=== PATIENT | male | born 1955 | race African-American/Black ===

== ENCOUNTER 2017-02-01 12:22 | Inpatient (IN) | payer OTHER ==
[~2017-02-01] VITALS: Ht 182.9 cm; Wt 163.1 kg
[2017-02-01] MEDS ORDERED: ACETAMINOPHEN 500 MG TABLET PO ONE (12:45)
[2017-02-01] MEDS ORDERED: IV NORMAL SALINE 1000ML BAG 1,000 ML IV ONE (12:45)
--- NOTE | 2017-02-01 12:46 | EKG ---
[facility] [address] [place] [address] Test Date: 2017-02-01 Test Time: 12:35:31 Pat Name: DEUCE MACDONALD Department: Room: Gender: Validation Manager: : [id number] Requested By: SHERINE ROTH Order Number: [id number] Reading MD: Steve Nguyễn Measurements Intervals [place] Rate: 120 P: -37 CA: 134 QRS: -27 QRSD: 80 T: 44 QT: 280 QTc: 400 Interpretive Statements SINUS TACHYCARDIA ATRIAL PREMATURE COMPLEX(ES) LEFTWARD AXIS T ABNORMALITY IN ANTERIOR LEADS ABNORMAL ECG Electronically Signed On 02-15-2017 13:42:07 TELEPHONE SERVICE REPRESENTATIVE by Steve Nguyễn
--- NOTE | 2017-02-01 12:50 | PHYS DOC ---
Past Medical History Past Medical History: CHF, Diabetes-Type II, Hypertension Adult General Chief Complaint Chief Complaint: shortness of breath HPI HPI Patient is a 61 year old male who presents with shortness of breath. Patient has an incarcerated male who presents via EMS for increasing shortness of breath , fever and cough. His initial O2 sats were in the 70s at the [facility]. He was given breathing treatments and supplemental oxygen and continued to be hypoxic. He states he feels slightly better, no known medical history other than hypertension and diabetes. He believes he possibly has a history of CHF, does not like to lay flat today as he feels like his heart will stop. He denies any chest pain, no nausea or vomiting. No neck pain, no headache. Patient does not wear oxygen at baseline. Review of Systems Review of Systems Constitutional: Fever Eyes: Denies change in visual acuity, redness, or eye pain [] HENT: Denies nasal congestion or sore throat [] Respiratory: Cough Cardiovascular: No additional information not addressed in HPI [] GI: Denies abdominal pain, nausea, vomiting, bloody stools or diarrhea [] : Denies dysuria or hematuria [] Musculoskeletal: Denies back pain or joint pain [] Integument: Denies rash or skin lesions [] Neurologic: Denies headache, focal weakness or sensory changes [] Current Medications Current Medications Current Medications Medications (Trade) Dose Ordered Sig/[place] Start Time Stop Time Status Last Admin Dose Admin Acetaminophen (Tylenol) 1,000 mg 1X ONCE 02/01/17 12:45 02/01/17 13:19 DC 02/01/17 13:49 1,000 MG Albuterol Sulfate (Ventolin Neb Soln) 10 mg 1X ONCE 02/01/17 13:15 02/01/17 13:19 DC 02/01/17 14:20 10 MG Albuterol/ Ipratropium (Duoneb) 3 ml 1X ONCE 02/01/17 13:15 02/01/17 13:20 DC 02/01/17 14:30 3 ML Levofloxacin/ Dextrose (Levaquin Per Pharmacy) 1 each PRN DAILY PRN 02/01/17 13:00 Piperacillin Sod/ Tazobactam Sod (Zosyn Per Pharmacy) 1 each PRN DAILY PRN 02/01/17 13:00 Sodium Chloride 1,000 ml @ 200 mls/hr 1X ONCE 02/01/17 12:45 02/01/17 17:44 DC 02/01/17 13:49 200 MLS/HR Vancomycin HCl (Vanco Per Pharmacy) 1 each PRN DAILY PRN 02/01/17 13:00 02/02/17 07:10 1 EACH Physical Exam Physical Exam Constitutional: Well developed, well nourished, moderate respiratory distress, obese HENT: Normocephalic, atraumatic, bilateral external ears normal, oropharynx moist, no oral exudates, nose normal. [] Eyes: PERRLA, EOMI, conjunctiva normal, no discharge. [] Neck: Normal range of motion, no tenderness, supple, no stridor. [] Cardiovascular:Heart rate tach [place] with regular rhythm, no murmur [] Lungs & Thorax: Tachypnic, Diffuse rhonchi, bibasilar crackles, faint expiratory wheeze, moderate air movement Abdomen: soft, no tenderness, no masses, no pulsatile masses. [] Skin: Warm, dry, no erythema, no rash. [] Back: No tenderness, no CVA tenderness. [] Extremities: No tenderness, no cyanosis, no clubbing, ROM intact, no edema. [] Neurologic: Alert and oriented X 3, normal motor function, normal sensory function, no focal deficits noted. [] Current Patient Data Vital Signs Vital Signs Date Time Temp Pulse Resp B/P (MAP) Pulse Ox O2 Delivery O2 Flow Rate FiO2 02/01/17 13:00 94 BiPAP/CPAP 02/01/17 12:25 100.9 121 40 125/67 (86) 5.0 100.9 Lab Values Laboratory Tests Test 02/01/17 12:44 02/01/17 12:50 O2 Saturation 87 % (92-99) L Arterial Blood pH 7.39 (7.35-7.45) Arterial Blood pH (Temp corrected) 7.37 Arterial Blood pCO2 at Patient Temp 57 mmHg (35-46) H Arterial Blood pCO2 (Temp correct) 60 mmHg Arterial Blood pO2 at Patient Temp 55 mmHg (65-108) L Arterial Blood pO2 (Temp corrected) 60 mmHg Arterial Blood HCO3 34 mmol/L (21-28) H Arterial Blood Base Excess 7 mmol/L (-3-3) H FiO2 45 White Blood Count 10.0 x10^3/uL (4.0-11.0) Red Blood Count 4.56 x10^6/uL (4.30-5.70) Hemoglobin 11.9 g/dL (13.0-17.5) L Hematocrit 37.9 % (39.0-53.0) L Mean Corpuscular Volume 83 fL (79-100) Mean Corpuscular Hemoglobin 26 pg (25-35) Mean Corpuscular Hemoglobin Concent 31 g/dL (31-37) Red Cell Distribution Width 17.5 % (11.5-14.5) H Platelet Count 270 x10^3/uL (140-400) Neutrophils (%) (Auto) 71 % (31-73) Lymphocytes (%) (Auto) 13 % (24-48) L Monocytes (%) (Auto) 15 % (0-9) H Eosinophils (%) (Auto) 0 % (0-3) Basophils (%) (Auto) 1 % (0-3) Neutrophils # (Auto) 7.1 x10^3uL (1.8-7.7) Lymphocytes # (Auto) 1.3 x10^3/uL (1.0-4.8) Monocytes # (Auto) 1.5 x10^3/uL (0.0-1.1) H Eosinophils # (Auto) 0.0 x10^3/uL (0.0-0.7) Basophils # (Auto) 0.1 x10^3/uL (0.0-0.2) Sodium Level 137 mmol/L (136-145) Potassium Level 3.6 mmol/L (3.5-5.1) Chloride Level 98 mmol/L (98-107) Carbon Dioxide Level 33 mmol/L (21-32) H Anion Gap 6 (6-14) Blood Urea Nitrogen 12 mg/dL (8-26) Creatinine 0.9 mg/dL (0.7-1.3) Estimated GFR (Cockcroft-Gault) 104.2 BUN/Creatinine Ratio 13 (6-20) Glucose Level 150 mg/dL (70-99) H Lactic Acid Level 1.5 mmol/L (0.4-2.0) Calcium Level 8.3 mg/dL (8.5-10.1) L Total Bilirubin 1.1 mg/dL (0.2-1.0) H Aspartate Amino Transferase (AST) 27 U/L (15-37) Alanine Aminotransferase (ALT) 18 U/L (16-63) Alkaline Phosphatase 81 U/L (46-116) Troponin I Quantitative 0.147 ng/mL (0.000-0.055) SP-Emk-P-Type Natriuretic Peptide 1310 pg/mL (0-124) H Total Protein 7.8 g/dL (6.4-8.2) Albumin 2.8 g/dL (3.4-5.0) L Albumin/Globulin Ratio 0.6 (1.0-1.7) L Triglycerides Level 59 mg/dL (0-150) Cholesterol Level 174 mg/dL (0-200) LDL Cholesterol, Calculated 114 mg/dL (0-100) H VLDL Cholesterol, Calculated 12 mg/dL (0-40) Non-HDL Cholesterol Calculated 126 mg/dL (0-129) HDL Cholesterol 48 mg/dL (40-60) Cholesterol/HDL Ratio 3.6 Laboratory Tests 02/01/17 12:50 Laboratory Tests 02/01/17 12:50 EKG EKG 120 bpm, sinus, leftward axis, QTC of 280, no appreciable ST elevation but baseline is wandering in V3 and V4, nonischemic T waves, interpreted by me[] monitor technician shows 122 bpm, sinus, no dysrhythmia appreciated, interpreted by me sPO2 of 84% on continuous pulse ox on 6 L nasal cannula with good waveform, interpreted by me Radiology/Procedures Radiology/Procedures Chest x-ray: Impression: Findings suggestive of left basilar pneumonia. Course & Med Decision Making Course & Med Decision Making Pertinent Labs and Imaging studies reviewed. (See chart for details) Patient given 1 g Tylenol for fever, started on maintenance fluids but concern for possible CHF, fluid overload so started at 200 mils per hour. Chest x-ray, blood cultures, lactic acid ordered along with other blood work, patient started on sepsis protocol due to Sirs, tachycardic, fever, hypoxia. He was given Levaquin, Zosyn and vancomycin after blood cultures obtained. Pt started on bipap due to hypoxia, tolerated well. Consulted cardiology for elevated trop X-ray consistent with pneumonia, I spoke with Dr. Ceballos who accepted this patient to telemetry. Pulmonary will be consult. Critical care 35 minutes Molly Disclaimer Dragon Disclaimer This electronic medical record was generated, in whole or in part, using a voice recognition dictation system. Departure Departure Impression: Primary Impression: Acute respiratory failure Additional Impressions: Sepsis Fever Pneumonia Disposition: 09 ADMITTED INPATIENT Admitting Physician: Stephenie Ceballos Condition: GUARDED Problem Qualifiers SHERINE ROTH MD Feb 01, 2017 12:50
[2017-02-01 12:59] LABS: CORRECTED PH ABG 7.37; FIO2 ABG 45; HCO3 ABG 34 mmol/L (21-28); PCO2 ABG 57 mmHg (35-46); PH ABG 7.39 (7.35-7.45); PO2 ABG 55 mmHg (65-108); SAT O2 ABG 87 % (92-99)
[2017-02-01 13:00] LABS: ALLEN TEST positive; CORRECTED PCO2 ABG 60 mmHg; CORRECTED PO2 ABG 60 mmHg
[2017-02-01] MEDS ORDERED: levOFLOXacin PER PHARMACY. MC PRN (13:00)
[2017-02-01] MEDS ORDERED: PIP/TAZO PER PHARMACY MC PRN (13:00)
--- NOTE | 2017-02-01 13:07 | RAD ---
Indication: Shortness of breath with cough and fever. Time of exam 12:56 PM Airspace parenchymal density in the left lung base is noted suggestive of pneumonia. The right lung is clear. No effusion is seen. There is no pneumothorax. Impression: Findings suggestive of left basilar pneumonia.
[2017-02-01 13:09] LABS: BASO # 0.1 x10^3/uL (0.0-0.2); BASO % 1 % (0-3); EOS % 0 % (0-3); HEMATOCRIT 37.9 % (39.0-53.0); HEMOGLOBIN 11.9 g/dL (13.0-17.5); LYMPH # 1.3 x10^3/uL (1.0-4.8); LYMPH % 13 % (24-48); MEAN CORPUSCULAR HEMOGLOBIN 26 pg (25-35); MEAN CORPUSCULAR HGB CONC 31 g/dL (31-37); MEAN CORPUSCULAR VOLUME 83 fL (79-100); MONO % 15 % (0-9); NEUT % 71 % (31-73); PLATELET COUNT 270 x10^3/uL (140-400); RED BLOOD COUNT 4.56 x10^6/uL (4.30-5.70); RED CELL DISTRIBUTION WIDTH 17.5 % (11.5-14.5)
[2017-02-01] MEDS ORDERED: IPRATRPIUM/ALBUTEROL 0.5/2.5MG 3 ML NEBU. NEB ONE (13:15)
[2017-02-01] MEDS ORDERED: ALBUTEROL SULFATE 2.5 MG/3 ML NEBU. CONT NEB ONE (13:15)
[2017-02-01 13:24] LABS: CALCIUM 8.3 mg/dL (8.5-10.1); CREATININE 0.9 mg/dL (0.7-1.3); GFR 104.2; POTASSIUM 3.6 mmol/L (3.5-5.1)
[2017-02-01] MEDS ORDERED: PIPERACILLIN/TAZO IV Push 4.5 GM VIAL. IVP ONE (13:30)
[2017-02-01 13:39] LABS: ALBUMIN 2.8 g/dL (3.4-5.0); ALBUMIN/GLOBULIN RATIO 0.6 (1.0-1.7); TOTAL BILIRUBIN 1.1 mg/dL (0.2-1.0); TOTAL PROTEIN 7.8 g/dL (6.4-8.2)
[2017-02-01] MEDS ORDERED: VANCOMYCIN 2 GM in IV DEXTROSE 5% 500 ML IV ONE (14:00)
--- NOTE | 2017-02-01 15:23 | PDOC2 ---
CARDIAC CONSULT DATE OF CONSULT Date of Consult DATE: 02/01/17 TIME: 15:00 REASON FOR CONSULT Reason for Consult: hypoxia, elevated troponin REFERRING PHYSICIAN Referring Physician: Miles SOURCE Source: Chart review, Patient HISTORY OF PRESENT ILLNESS HISTORY OF PRESENT ILLNESS This is a pleasant 61 yo male admitted for complains of SOA. Pt resides at the [facility]. Reports that he started having SOA yesterday. This got worse overnight and had limited sleep. Woke up 3 AM and has not been able to sleep since then. Positive for PND. He has been coughing out clear sputum. Has been diaphoretic, feeling of chest tightness. No anorexia, palpitations, and no nausea or vomiting. In the last week he has been slightly becoming more SOA and weak. Denies any CP per se but more of chest tightness with no associated jaw or arm discomfort. No prior VTE, CAD, falls or any injury. Reports of KINGA but has not use any device since 03/2016. Presently he is barely in the 90s and was placed on bipap. PAST MEDICAL HISTORY Cardiovascular: HTN, Hyperlipidemia Pulmonary: Other (KINGA, last use of CPAP 03/2016) GI: No pertinent hx Heme/Onc: No pertinent hx Hepatobiliary: No pertinent hx Psych: Anxiety Musculoskeletal: Osteoarthritis Rheumatologic: No pertinent hx Infectious disease: No pertinent hx ENT: No pertinent hx Renal/: No pertinent hx Endocrine: Diabetes (2) Dermatology: No pertinent hx PAST SURGICAL HISTORY Past Surgical History: Arthroscopy (left knee) FAMILY HISTORY Family History: Heart Disease (mother and father) SOCIAL HISTORY Smoke: Quit ALCOHOL: none Drugs: None Lives: Alone ([facility]) CURRENT MEDICATIONS CURRENT MEDICATIONS Current Medications Medications (Trade) Dose Ordered Sig/[place] Route PRN Reason Start Time Stop Time Status Last Admin Dose Admin Acetaminophen (Tylenol) 1,000 mg 1X ONCE PO 02/01/17 12:45 02/01/17 13:19 DC 02/01/17 13:49 Sodium Chloride 1,000 ml @ 200 mls/hr 1X ONCE IV 02/01/17 12:45 02/01/17 17:44 02/01/17 13:49 Albuterol/ Ipratropium (Duoneb) 3 ml 1X ONCE NEB 02/01/17 13:15 02/01/17 13:20 DC 02/01/17 14:30 Albuterol Sulfate (Ventolin Neb Soln) 10 mg 1X ONCE CONT NEB 02/01/17 13:15 02/01/17 13:19 DC 02/01/17 14:20 Levofloxacin/ Dextrose 100 ml @ 100 mls/hr 1X ONCE IV 02/01/17 13:30 02/01/17 14:29 DC 02/01/17 13:49 Piperacillin Sod/ Tazobactam Sod (Zosyn) 4.5 gm 1X ONCE IVP 02/01/17 13:30 02/01/17 13:31 DC 02/01/17 14:43 Vancomycin HCl 2 gm/Dextrose 500 ml @ 250 mls/hr 1X ONCE IV 02/01/17 14:00 02/01/17 15:59 02/01/17 14:43 ALLERGIES ALLERGIES: Coded Allergies: chlorpromazine (Verified Allergy, Intermediate, 02/01/17) ROS Review of System 14 point ROS evaluated with pertinent positives noted per HPI PHYSICAL EXAM General: Alert, Oriented X3, Cooperative, moderate distress HEENT: Atraumatic, Mucous membr. moist/pink Lungs: Other (faint basilr crackles, diminished bases) Heart: Regular rate (SR), Other (2/6 systolic murmur to LLS border) Abdomen: Soft, Other (truncal obesity) Extremities: No cyanosis, No edema Skin: No breakdown Neuro: Normal speech, Sensation intact Psych/Mental Status: Mental status NL, Mood NL MUSCULOSKELETAL: Osteoarthritic changes both hands VITALS VITALS Vital Signs Date Time Temp Pulse Resp B/P (MAP) Pulse Ox O2 Delivery O2 Flow Rate FiO2 02/01/17 14:19 97 BiPAP/CPAP 02/01/17 12:25 100.9 121 40 125/67 (86) 5.0 100.9 LABS Lab: Laboratory Tests Test 02/01/17 12:44 02/01/17 12:50 O2 Saturation 87 % (92-99) Arterial Blood pH 7.39 (7.35-7.45) Arterial Blood pH (Temp corrected) 7.37 Arterial Blood pCO2 at Patient Temp 57 mmHg (35-46) Arterial Blood pCO2 (Temp correct) 60 mmHg Arterial Blood pO2 at Patient Temp 55 mmHg (65-108) Arterial Blood pO2 (Temp corrected) 60 mmHg Arterial Blood HCO3 34 mmol/L (21-28) Arterial Blood Base Excess 7 mmol/L (-3-3) FiO2 45 White Blood Count 10.0 x10^3/uL (4.0-11.0) Red Blood Count 4.56 x10^6/uL (4.30-5.70) Hemoglobin 11.9 g/dL (13.0-17.5) Hematocrit 37.9 % (39.0-53.0) Mean Corpuscular Volume 83 fL (79-100) Mean Corpuscular Hemoglobin 26 pg (25-35) Mean Corpuscular Hemoglobin Concent 31 g/dL (31-37) Red Cell Distribution Width 17.5 % (11.5-14.5) Platelet Count 270 x10^3/uL (140-400) Neutrophils (%) (Auto) 71 % (31-73) Lymphocytes (%) (Auto) 13 % (24-48) Monocytes (%) (Auto) 15 % (0-9) Eosinophils (%) (Auto) 0 % (0-3) Basophils (%) (Auto) 1 % (0-3) Neutrophils # (Auto) 7.1 x10^3uL (1.8-7.7) Lymphocytes # (Auto) 1.3 x10^3/uL (1.0-4.8) Monocytes # (Auto) 1.5 x10^3/uL (0.0-1.1) Eosinophils # (Auto) 0.0 x10^3/uL (0.0-0.7) Basophils # (Auto) 0.1 x10^3/uL (0.0-0.2) Sodium Level 137 mmol/L (136-145) Potassium Level 3.6 mmol/L (3.5-5.1) Chloride Level 98 mmol/L (98-107) Carbon Dioxide Level 33 mmol/L (21-32) Anion Gap 6 (6-14) Blood Urea Nitrogen 12 mg/dL (8-26) Creatinine 0.9 mg/dL (0.7-1.3) Estimated GFR (Cockcroft-Gault) 104.2 BUN/Creatinine Ratio 13 (6-20) Glucose Level 150 mg/dL (70-99) Lactic Acid Level 1.5 mmol/L (0.4-2.0) Calcium Level 8.3 mg/dL (8.5-10.1) Total Bilirubin 1.1 mg/dL (0.2-1.0) Aspartate Amino Transf (AST/SGOT) 27 U/L (15-37) Alanine Aminotransferase (ALT/SGPT) 18 U/L (16-63) Alkaline Phosphatase 81 U/L (46-116) Troponin I Quantitative 0.147 ng/mL (0.000-0.055) KU-Wup-R-Type Natriuretic Peptide 1310 pg/mL (0-124) Total Protein 7.8 g/dL (6.4-8.2) Albumin 2.8 g/dL (3.4-5.0) Albumin/Globulin Ratio 0.6 (1.0-1.7) ASSESSMENT/PLAN ASSESSMENT/PLAN 1. Acute respiratory failure with likely pneumonia 2. Uncontrolled KINGA: last use of CPAP 03/2016 3. Chest Pain: described as tightness likely from bronchospasm. No vascular congestion no peripheral edema. 4. Elevated troponin: initially at 0.147, EKG Sinus tach with PAC, no acute changes. Likely induced by hypoxia and pneumonia. 5. HTN: controlled 6. DM2/HLP 7. Morbid obesity Recommendations 1. TTE today. Trend troponin. lipid panel. Ischemic workup to be considered pending results of pending testings. 2. Resume Bipap. Consult pulmonary 3. Continue secondary prevention measures. Problems: THOM PACHECO CLINIC MANAGER Feb 01, 2017 15:23
[2017-02-01 15:26] VITALS: BP 123/67
[2017-02-01 15:44] LABS: CHOLESTEROL/HDL RATIO 3.6
[2017-02-01] MEDS ORDERED: METF100010 PO (15:45)
[2017-02-01] MEDS ORDERED: ACET325T9 PO (15:45)
[2017-02-01] MEDS ORDERED: IBUP-1027 PO (15:45)
[2017-02-01] MEDS ORDERED: ATOR10TA60 PO (15:45)
[2017-02-01] MEDS ORDERED: GLIP5TAB10 PO (15:45)
[2017-02-01] MEDS ORDERED: CHLO25TA PO (15:45)
[2017-02-01] MEDS ORDERED: PARO20TA99 PO (15:45)
[2017-02-01] MEDS ORDERED: LISI40TA PO (15:45)
[2017-02-01] MEDS: VANCOMYCIN PER PHARMACY MC PRN (16:18)
[2017-02-01] MEDS: IPRATRPIUM/ALBUTEROL 0.5/2.5MG 3 ML NEBU. NEB SCH ×2 (16:20→19:31)
--- NOTE | 2017-02-01 17:00 | CARD ---
APPROVED REPORT EXAM: Two-dimensional and M-mode echocardiogram with Doppler and color Doppler. Other Information Quality : Average Rhythm : NSR INDICATION Dyspnea Hypoxia 2D DIMENSIONS RVDd3.3 (2.9-3.5cm)Left Atrium(2D)3.7 (1.6-4.0cm) IVSd1.5 (0.7-1.1cm)Aortic Root(2D)3.1 (2.0-3.7cm) LVDd4.3 (3.9-5.9cm)LVOT Diameter2.4 (1.8-2.4cm) PWd1.5 (0.7-1.1cm)LVDs3.1 (2.5-4.0cm) FS (%) 28.5 %SV46.8 ml LVEF(%)55.2 (>50%) Aortic Valve AoV Peak Eulalio.175.4cm/sAoV VTI27.6cm AO Peak GR.12.3mmHgLVOT VTI 21.15cm AO Mean GR.7mmHg Mitral Valve MV E Ocshtruu66.5cm/sMV E Peak Gr.3mmHg MV DECEL [id number] A Jtrniiyk44.0cm/s MV E Mean Gr.1mmHgE/A Ratio1.0 MV A [id number] TDI Lateral E' P. V11.94cm/sMedial E' P. V10.46cm/s E/Lateral E'7.2E/Medial E'8.2 Tricuspid Valve TR P. [id number]/sRAP [id number] TR Peak Gr.[id number] LEFT VENTRICLE The left ventricle is normal size. There is mild to moderate concentric left ventricular hypertrophy. Left ventricle systolic function is normal. The Ejection Fraction is 55-60%. There is normal LV segm ental wall motion. The left ventricular diastolic function and filling is normal for age. RIGHT VENTRICLE The right ventricle is normal size. The right ventricular systolic function is normal. ATRIA The left atrium size is normal. The right atrium size is normal. The interatrial septum is intact wit h no evidence for an atrial septal defect or patent foramen ovale as noted on 2-D or Doppler imaging. AORTIC VALVE The aortic valve is mildly calcified. The aortic valve is trileaflet. Doppler and Color Flow revealed no significant aortic regurgitation. There is no significant aortic valvular stenosis. MITRAL VALVE The mitral valve is normal in structure and function. There is no mitral valve stenosis. Doppler and Color Flow revealed no mitral valve regurgitation noted. TRICUSPID VALVE The tricuspid valve is not well visualized. Doppler and Color Flow revealed mild tricuspid regurgitat ion. The PA pressure was estimated at 29 mmHg. There is no tricuspid valve stenosis. PULMONIC VALVE The pulmonic valve is not well visualized. Doppler and Color Flow revealed no pulmonic valvular regur gitation. There is no pulmonic valvular stenosis. GREAT VESSELS The aortic root is normal in size. Pulmonary veins not recorded. The IVC was not visualized. PERICARDIAL EFFUSION There is no evidence of significant pericardial effusion. Critical Notification Critical Value: No <Conclusion> Left ventricle systolic function is normal. The Ejection Fraction is 55-60%. There is normal LV segmental wall motion. Doppler and Color Flow revealed mild tricuspid regurgitation. The PA pressure was estimated at 29 mmHg. There is no evidence of significant pericardial effusion.
[2017-02-01] MEDS ORDERED: DICL100G18 TP (17:13)
[2017-02-01] MEDS ORDERED: CAPS42.510 TP (17:13)
[2017-02-01] MEDS: ASPIRIN ENTERIC COATED 81 MG TABLET.DR. PO SCH (18:09)
[2017-02-01] MEDS: PIPERACILLIN/TAZO IV Push 4.5 GM VIAL. IVP SCH ×2 (18:09→23:35)
[2017-02-01 19:00] VITALS: BP 114/55
[2017-02-01 19:30] VITALS: BP 116/62
[2017-02-01] MEDS ORDERED: VANCOMYCIN 2 GM in IV DEXTROSE 5% 500 ML IV SCH (23:00)
[2017-02-01 23:43] VITALS: BP 129/74
[2017-02-02] MEDS: VANCOMYCIN 2 GM in IV DEXTROSE 5% 500 ML IV SCH ×2 (03:51→16:41)
[2017-02-02 03:52] VITALS: BP 135/84
--- NOTE | 2017-02-02 04:08 | HP ---
ADMIT DATE: 02/01/2017 CHIEF COMPLAINT: Respiratory failure. HISTORY OF PRESENT ILLNESS: The patient is a pleasant middle-aged male who is from the [facility]. Basically, he presents with respiratory failure. He is short of breath. He has got a cough. He has got a fever. He is really coarse on the ____. Chest x-ray is showing pneumonia. He meets sepsis criteria as well. I have discussed the case with ER physician. We are going to admit the patient. PAST MEDICAL HISTORY: Hypertension, hyperlipidemia, obstructive sleep apnea, overweight, osteoarthritis, diabetes. ALLERGIES: CHLORPROMAZINE. FAMILY HISTORY: Unknown. The patient is too sick to talk. SOCIAL HISTORY: He does not drink, smoke or take drugs. [facility]. MEDICATIONS: Reviewed. REVIEW OF SYSTEMS: Unreliable. The patient is too confused and weak. PHYSICAL EXAMINATION: VITAL SIGNS: Temperature is 100.9, pulse 100, respirations 20, blood pressure 123/67. O2 sats 95%. He is on 50% oxygen. GENERAL: He is very somnolent. He is on BiPAP. HEART: Distant S1, S2 with a soft S3. LUNGS: Clear on the ____, but very coarse on the ____. ABDOMEN: Soft, distended, obese. EXTREMITIES: 2+ edema. SKIN: No rashes. ENDOCRINE: No thyromegaly. LYMPHATICS: No cervical nodes. HEMATOPOIETIC: No bruising. LABORATORY DATA: Pending. ASSESSMENT AND PLAN: Respiratory failure with sepsis. The patient has been admitted. We will start him on IV antibiotics. Consult Pulmonary. Consult Cardiology. I suspect he might have an element of heart failure. DuoNeb, oxygen, frequent labs, home meds. PROGNOSIS: Guarded. BRIDGETT WAGNER DO DR: SALLY/chuckie JOB#: [id number] / [id number]
[2017-02-02] MEDS: PIPERACILLIN/TAZO IV Push 4.5 GM VIAL. IVP SCH ×4 (06:15→23:35)
[2017-02-02] MEDS: IPRATRPIUM/ALBUTEROL 0.5/2.5MG 3 ML NEBU. NEB SCH ×2 (07:09→11:18)
[2017-02-02] MEDS: VANCOMYCIN PER PHARMACY MC PRN ×2 (07:10→07:41)
[2017-02-02 07:37] VITALS: BP 139/81
[2017-02-02] MEDS: ASPIRIN ENTERIC COATED 81 MG TABLET.DR. PO SCH (08:59)
[2017-02-02] MEDS: MORPHINE SULFATE 2 MG/ML DISP.SYRIN. IV PRN ×2 (09:00→16:48)
[2017-02-02] MEDS ORDERED: PNEUMOC CONJ VACC 23-VALENT 0.5 ML VIAL. VAX IM ONE (09:00)
[2017-02-02 11:00] VITALS: BP 119/69
[2017-02-02] MEDS: KETOROLAC 30 MG/ML INJ. IV PRN ×2 (11:26→20:59)
--- NOTE | 2017-02-02 11:51 | PDOC ---
CARDIO Progress Notes Date and Time Date of Service 02/02/2017 Time of Evaluation 1130 Subjective Subjective: No Chest Pain, No Palpitations, No Dizziness, Other (Still has some SOA, off bipap, could not cough out sputum) Vitals Vitals Vital Signs Date Time Temp Pulse Resp B/P (MAP) Pulse Ox O2 Delivery O2 Flow Rate FiO2 02/02/17 11:19 100 NonRebreather Mask 15.0 02/02/17 07:37 97.4 73 21 139/81 (100) 97.4 Weight Weight [ ] Input and Output Intake and Output Intake and Output 02/02/17 06:59 Intake Total 760 ml Output Total 1102 ml Balance -342 ml Intake Oral 760 ml Output Urine Total 1102 ml Laboratory Labs Laboratory Tests Test 02/01/17 12:44 02/01/17 12:50 02/01/17 19:20 02/02/17 01:08 O2 Saturation 87 % (92-99) Arterial Blood pH 7.39 (7.35-7.45) Arterial Blood pH (Temp corrected) 7.37 Arterial Blood pCO2 at Patient Temp 57 mmHg (35-46) Arterial Blood pCO2 (Temp correct) 60 mmHg Arterial Blood pO2 at Patient Temp 55 mmHg (65-108) Arterial Blood pO2 (Temp corrected) 60 mmHg Arterial Blood HCO3 34 mmol/L (21-28) Arterial Blood Base Excess 7 mmol/L (-3-3) FiO2 45 White Blood Count 10.0 x10^3/uL (4.0-11.0) Red Blood Count 4.56 x10^6/uL (4.30-5.70) Hemoglobin 11.9 g/dL (13.0-17.5) Hematocrit 37.9 % (39.0-53.0) Mean Corpuscular Volume 83 fL (79-100) Mean Corpuscular Hemoglobin 26 pg (25-35) Mean Corpuscular Hemoglobin Concent 31 g/dL (31-37) Red Cell Distribution Width 17.5 % (11.5-14.5) Platelet Count 270 x10^3/uL (140-400) Neutrophils (%) (Auto) 71 % (31-73) Lymphocytes (%) (Auto) 13 % (24-48) Monocytes (%) (Auto) 15 % (0-9) Eosinophils (%) (Auto) 0 % (0-3) Basophils (%) (Auto) 1 % (0-3) Neutrophils # (Auto) 7.1 x10^3uL (1.8-7.7) Lymphocytes # (Auto) 1.3 x10^3/uL (1.0-4.8) Monocytes # (Auto) 1.5 x10^3/uL (0.0-1.1) Eosinophils # (Auto) 0.0 x10^3/uL (0.0-0.7) Basophils # (Auto) 0.1 x10^3/uL (0.0-0.2) Sodium Level 137 mmol/L (136-145) Potassium Level 3.6 mmol/L (3.5-5.1) Chloride Level 98 mmol/L (98-107) Carbon Dioxide Level 33 mmol/L (21-32) Anion Gap 6 (6-14) Blood Urea Nitrogen 12 mg/dL (8-26) Creatinine 0.9 mg/dL (0.7-1.3) Estimated GFR (Cockcroft-Gault) 104.2 BUN/Creatinine Ratio 13 (6-20) Glucose Level 150 mg/dL (70-99) Lactic Acid Level 1.5 mmol/L (0.4-2.0) Calcium Level 8.3 mg/dL (8.5-10.1) Total Bilirubin 1.1 mg/dL (0.2-1.0) Aspartate Amino Transf (AST/SGOT) 27 U/L (15-37) Alanine Aminotransferase (ALT/SGPT) 18 U/L (16-63) Alkaline Phosphatase 81 U/L (46-116) Troponin I Quantitative 0.147 ng/mL (0.000-0.055) 0.062 ng/mL (0.000-0.055) < 0.017 ng/mL (0.000-0.055) LQ-Law-J-Type Natriuretic Peptide 1310 pg/mL (0-124) Total Protein 7.8 g/dL (6.4-8.2) Albumin 2.8 g/dL (3.4-5.0) Albumin/Globulin Ratio 0.6 (1.0-1.7) Triglycerides Level 59 mg/dL (0-150) Cholesterol Level 174 mg/dL (0-200) LDL Cholesterol, Calculated 114 mg/dL (0-100) VLDL Cholesterol, Calculated 12 mg/dL (0-40) Non-HDL Cholesterol Calculated 126 mg/dL (0-129) HDL Cholesterol 48 mg/dL (40-60) Cholesterol/HDL Ratio 3.6 Physical Exam HEENT: Neck Supple W Full Motion Chest: Symmetric LUNGS: Other (rhonchi throughout) Heart: S1S2, RRR (SR) Abdomen: Soft N/T Extremities: No Edema, No Calf Tenderness Neurology: alert, oriented, follow commands Assessment Assessment 1. Acute respiratory failure with likely pneumonia 2. Uncontrolled KINGA: last use of CPAP 03/2016 3. Chest Pain: described as tightness likely from bronchospasm. No vascular congestion no peripheral edema. 4. Elevated troponin: Peaked at 0.147, EKG no acute changes. Induced by hypoxia and pneumonia. EF and wall motion normal. 5. HTN: well controlled 6. DM2/HLP 7. Morbid obesity Recommendations 1. Will consider for outpt stress test. At this time no further cardiac workup 2. Continue with antibiotics, awaiting pulmonary 3. Repeat CXR. Continue secondary prevention measures. Restart statin/ASA. Typically at 40 mg of lisin[address] will place on lower dose for now and uptitrate per BP trend. 4. Will follow peripherally. HTOM PACHECO APRN Feb 02, 2017 11:51
--- NOTE | 2017-02-02 13:27 | PDOC ---
PROGRESS NOTES Chief Complaint Chief Complaint Shortness of Breath CHF Diabetes-Type II Hypertension History of Present Illness History of Present Illness Pt laying in bed, conversing pleasantly. Vitals Vitals Vital Signs Date Time Temp Pulse Resp B/P (MAP) Pulse Ox O2 Delivery O2 Flow Rate FiO2 02/02/17 11:19 100 NonRebreather Mask 15.0 02/02/17 11:00 97.9 88 20 119/69 (86) 97.9 Physical Exam General: Alert, Cooperative, mild distress Heart: Regular rate, Normal S1, Normal S2 Lungs: Wheezing, Crackles Abdomen: Other (No pretibial edema) Labs LABS Laboratory Tests Test 02/01/17 19:20 02/02/17 01:08 Troponin I Quantitative 0.062 ng/mL (0.000-0.055) < 0.017 ng/mL (0.000-0.055) Review of Systems Review of Systems Admits to constant chest pain, shortness of breath, cough and wheezing. Assessment and Plan Assessmemt and Plan Problems Medical Problems: (1) Acute respiratory failure Status: Acute (2) Fever Status: Acute (3) Pneumonia Status: Acute (4) Sepsis Status: Acute ASSESSMENT: Shortness of Breath CHF Diabetes-Type II Hypertension PLAN: Continue 100% non-rebreather Continue antibiotics PT/OT consult Await pulmonary recommendations Appreciated cardiac recommendations Follow up with PCP after discharge Problems: Comment Review of Relevant I have reviewed the following items jenny (where applicable) has been applied. Labs Laboratory Tests Test 02/01/17 12:44 02/01/17 12:50 02/01/17 19:20 02/02/17 01:08 O2 Saturation 87 % (92-99) Arterial Blood pH 7.39 (7.35-7.45) Arterial Blood pH (Temp corrected) 7.37 Arterial Blood pCO2 at Patient Temp 57 mmHg (35-46) Arterial Blood pCO2 (Temp correct) 60 mmHg Arterial Blood pO2 at Patient Temp 55 mmHg (65-108) Arterial Blood pO2 (Temp corrected) 60 mmHg Arterial Blood HCO3 34 mmol/L (21-28) Arterial Blood Base Excess 7 mmol/L (-3-3) FiO2 45 White Blood Count 10.0 x10^3/uL (4.0-11.0) Red Blood Count 4.56 x10^6/uL (4.30-5.70) Hemoglobin 11.9 g/dL (13.0-17.5) Hematocrit 37.9 % (39.0-53.0) Mean Corpuscular Volume 83 fL (79-100) Mean Corpuscular Hemoglobin 26 pg (25-35) Mean Corpuscular Hemoglobin Concent 31 g/dL (31-37) Red Cell Distribution Width 17.5 % (11.5-14.5) Platelet Count 270 x10^3/uL (140-400) Neutrophils (%) (Auto) 71 % (31-73) Lymphocytes (%) (Auto) 13 % (24-48) Monocytes (%) (Auto) 15 % (0-9) Eosinophils (%) (Auto) 0 % (0-3) Basophils (%) (Auto) 1 % (0-3) Neutrophils # (Auto) 7.1 x10^3uL (1.8-7.7) Lymphocytes # (Auto) 1.3 x10^3/uL (1.0-4.8) Monocytes # (Auto) 1.5 x10^3/uL (0.0-1.1) Eosinophils # (Auto) 0.0 x10^3/uL (0.0-0.7) Basophils # (Auto) 0.1 x10^3/uL (0.0-0.2) Sodium Level 137 mmol/L (136-145) Potassium Level 3.6 mmol/L (3.5-5.1) Chloride Level 98 mmol/L (98-107) Carbon Dioxide Level 33 mmol/L (21-32) Anion Gap 6 (6-14) Blood Urea Nitrogen 12 mg/dL (8-26) Creatinine 0.9 mg/dL (0.7-1.3) Estimated GFR (Cockcroft-Gault) 104.2 BUN/Creatinine Ratio 13 (6-20) Glucose Level 150 mg/dL (70-99) Lactic Acid Level 1.5 mmol/L (0.4-2.0) Calcium Level 8.3 mg/dL (8.5-10.1) Total Bilirubin 1.1 mg/dL (0.2-1.0) Aspartate Amino Transf (AST/SGOT) 27 U/L (15-37) Alanine Aminotransferase (ALT/SGPT) 18 U/L (16-63) Alkaline Phosphatase 81 U/L (46-116) Troponin I Quantitative 0.147 ng/mL (0.000-0.055) 0.062 ng/mL (0.000-0.055) < 0.017 ng/mL (0.000-0.055) LX-Bva-C-Type Natriuretic Peptide 1310 pg/mL (0-124) Total Protein 7.8 g/dL (6.4-8.2) Albumin 2.8 g/dL (3.4-5.0) Albumin/Globulin Ratio 0.6 (1.0-1.7) Triglycerides Level 59 mg/dL (0-150) Cholesterol Level 174 mg/dL (0-200) LDL Cholesterol, Calculated 114 mg/dL (0-100) VLDL Cholesterol, Calculated 12 mg/dL (0-40) Non-HDL Cholesterol Calculated 126 mg/dL (0-129) HDL Cholesterol 48 mg/dL (40-60) Cholesterol/HDL Ratio 3.6 Laboratory Tests Test 02/01/17 19:20 02/02/17 01:08 Troponin I Quantitative 0.062 ng/mL (0.000-0.055) < 0.017 ng/mL (0.000-0.055) Microbiology 02/01/17 Blood Culture - Preliminary, Resulted NO GROWTH AFTER 1 DAY Medications Current Medications Acetaminophen (Tylenol) 1,000 mg 1X ONCE PO Last administered on 02/01/17 13 :49; Start 02/01/17 at 12:45; Stop 02/01/17 at 13:19; Status DC Sodium Chloride 1,000 ml @ 200 mls/hr 1X ONCE IV Last administered on 13:49; Start 02/01/17 at 12:45; Stop 02/01/17 at 17:44; Status DC Piperacillin Sod/ Tazobactam Sod (Zosyn Per Pharmacy) 1 each PRN DAILY PRN MC SEE COMMENTS; Start 02/01/17 at 13:00 Vancomycin HCl (Vanco Per Pharmacy) 1 each PRN DAILY PRN MC SEE COMMENTS Last administered on 02/02/17 07:41; Start 02/01/17 at 13:00 Levofloxacin/ Dextrose (Levaquin Per Pharmacy) 1 each PRN DAILY PRN MC SEE COMMENTS; Start 02/01/17 at 13:00 Albuterol/ Ipratropium (Duoneb) 3 ml 1X ONCE NEB Last administered on 14:30; Start 02/01/17 at 13:15; Stop 02/01/17 at 13:20; Status DC Albuterol/ Ipratropium (Duoneb) 3 ml RTQID NEB Last administered on 02/02/17 11:18; Start 02/01/17 at 16:00; Stop 02/02/17 at 15:59 Albuterol Sulfate (Ventolin Neb Soln) 10 mg 1X ONCE CONT NEB Last administered on 02/01/17 14:20; Start 02/01/17 at 13:15; Stop 02/01/17 at 13 :19; Status DC Levofloxacin/ Dextrose 100 ml @ 100 mls/hr 1X ONCE IV Last administered on 13:49; Start 02/01/17 at 13:30; Stop 02/01/17 at 14:29; Status DC Piperacillin Sod/ Tazobactam Sod (Zosyn) 4.5 gm 1X ONCE IVP Last administered on 02/01/17 14:43; Start 02/01/17 at 13:30; Stop 02/01/17 at 13:31; Status DC Vancomycin HCl 2 gm/Dextrose 500 ml @ 250 mls/hr 1X ONCE IV Last administered on 02/01/17 14:43; Start 02/01/17 at 14:00; Stop 02/01/17 at 15 :59; Status DC Levofloxacin/ Dextrose 150 ml @ 100 mls/hr Q24H IV ; Start 02/02/17 at 15:00 Piperacillin Sod/ Tazobactam Sod (Zosyn) 4.5 gm Q6HRS IVP Last administered on 02/02/17 11:26; Start 02/01/17 at 19:00 Aspirin (Ecotrin) 81 mg DAILYWBKFT PO Last administered on 02/02/17 08:59; Start 02/01/17 at 16:00 Vancomycin HCl 2 gm/Dextrose 500 ml @ 250 mls/hr Q8H IV ; Start 02/01/17 at 23 :00; Stop 02/01/17 at 23:00; Status DC Vancomycin HCl 1 each 1X ONCE MC ; Start 02/03/17 at 02:30; Stop 02/03/17 at 02:31 Vancomycin HCl 2 gm/Dextrose 500 ml @ 250 mls/hr Q12H IV Last administered on 02/02/17 03:51; Start 02/02/17 at 03:00 Pneumococcal Polyvalent Vaccine (Pneumovax 23) 0.5 ml ONCE ONCE VAX IM ; Start 02/02/17 at 09:00; Stop 02/02/17 at 09:01; Status DC Morphine Sulfate 2 mg PRN Q2HR PRN IV PAIN Last administered on 02/02/17 09: 00; Start 02/02/17 at 09:00 Ketorolac Tromethamine (Toradol) 30 mg PRN Q6HRS PRN IV PAIN Last administered on 02/02/17 11:26; Start 02/02/17 at 09:00; Stop 02/07/17 at 08:59 Aspirin (Ecotrin) 81 mg DAILYWBKFT PO ; Start 02/03/17 at 08:00; Status Cancel Atorvastatin Calcium (Lipitor) 10 mg QHS PO ; Start 02/02/17 at 21:00 Lisinopril (Prinivil) 10 mg DAILY PO ; Start 02/02/17 at 12:00 Active Scripts Active Reported Voltaren (Diclofenac Sodium) 100 Gm Gel..gram. 1 Gm TP BID Capsaicin 42.5 Gm Cream..g. 42.5 Gm TP Lisinopril 40 Mg Tablet 1 Tab PO HS Tylenol (Acetaminophen) 325 Mg Tablet 2 Tab PO PRN Q12HR PRN Chlorthalidone 25 Mg Tablet 2 Tab PO DAILY Paxil (Paroxetine Hcl) 20 Mg Tablet 1 Tab PO HS Metformin Hcl Er (Metformin Hcl) 1,000 Mg Tab.er.24 1,000 Mg PO DAILYBFRSUP Atorvastatin Calcium 10 Mg Tablet 10 Mg PO HS Glipizide 5 Mg Tablet 1 Tab PO DAILY Ibuprofen 400 Mg Tablet 400 Mg PO PRN Q12HR PRN Vitals/I & O Vital Sign - Last 24 Hours 02/01/17 02/01/17 02/01/17 02/01/17 13:30 14:00 14:17 14:19 Pulse 112 108 Resp 33 30 B/P (MAP) 122/61 (81) 121/73 (89) Pulse Ox 92 96 97 97 O2 Delivery BiPAP/CPAP BiPAP/CPAP BiPAP/CPAP BiPAP/CPAP O2 Flow Rate 60.0 60.0 02/01/17 02/01/17 02/01/17 02/01/17 14:30 15:10 15:26 16:27 Temp 100.0 100.0 Pulse 108 99 Resp 34 22 B/P (MAP) 126/77 (93) 123/67 (85) Pulse Ox 94 97 95 O2 Delivery BiPAP/CPAP Bi-pap BiPAP/CPAP BiPAP/CPAP O2 Flow Rate 60.0 02/01/17 02/01/17 02/01/17 02/01/17 16:56 19:00 19:25 19:30 Temp 97.7 98.2 97.7 98.2 Pulse 95 92 Resp 22 20 B/P (MAP) 114/55 (74) 116/62 (80) Pulse Ox 96 96 94 O2 Delivery BiPAP/CPAP NonRebreather Mask Bi-pap NonRebreather Mask 02/01/17 02/01/17 02/01/17 02/01/17 19:31 21:10 23:41 23:43 Temp 98.3 98.3 Pulse 77 Resp 20 B/P (MAP) 129/74 (92) Pulse Ox 99 98 98 97 O2 Delivery BiPAP/CPAP BiPAP/CPAP BiPAP/CPAP BiPAP/CPAP 02/02/17 02/02/17 02/02/17 02/02/17 02:55 03:52 05:35 07:09 Temp 97.7 97.7 Pulse 84 Resp 22 B/P (MAP) 135/84 (101) Pulse Ox 100 98 95 100 O2 Delivery BiPAP/CPAP BiPAP/CPAP BiPAP/CPAP BiPAP/CPAP 02/02/17 02/02/17 02/02/17 02/02/17 07:37 07:50 09:00 09:30 Temp 97.4 97.4 Pulse 73 Resp 21 B/P (MAP) 139/81 (100) Pulse Ox 97 97 97 O2 Delivery BiPAP/CPAP Bi-pap O2 Flow Rate 60.0 60.0 60.0 02/02/17 02/02/17 11:00 11:19 Temp 97.9 97.9 Pulse 88 Resp 20 B/P (MAP) 119/69 (86) Pulse Ox 95 100 O2 Delivery NonRebreather Mask NonRebreather Mask O2 Flow Rate 15.0 15.0 Intake and Output 02/01/17 02/01/17 02/02/17 15:00 23:00 07:00 Intake Total 360 ml 400 ml Output Total 350 ml 752 ml Balance 10 ml -352 ml BRIDGETT WAGNER III DO Feb 02, 2017 13:27
[2017-02-02] MEDS ORDERED: IBUPROFEN 400 MG TABLET. PO PRN (13:45)
[2017-02-02] MEDS ORDERED: ACETAMINOPHEN 325 MG TABLET. PO PRN (13:45)
[2017-02-02] MEDS: LISINOPRIL 10 MG TABLET PO SCH (14:22)
--- NOTE | 2017-02-02 14:29 | PDOC ---
PULMONARY PROGRESS NOTES Vitals Vital Signs Date Time Temp Pulse Resp B/P (MAP) Pulse Ox O2 Delivery O2 Flow Rate FiO2 02/02/17 11:19 100 NonRebreather Mask 15.0 02/02/17 11:00 97.9 88 20 119/69 (86) 97.9 Lungs: Wheezing, Crackles Labs Laboratory Tests Test 02/01/17 12:44 02/01/17 12:50 02/01/17 19:20 02/02/17 01:08 O2 Saturation 87 % (92-99) Arterial Blood pH 7.39 (7.35-7.45) Arterial Blood pH (Temp corrected) 7.37 Arterial Blood pCO2 at Patient Temp 57 mmHg (35-46) Arterial Blood pCO2 (Temp correct) 60 mmHg Arterial Blood pO2 at Patient Temp 55 mmHg (65-108) Arterial Blood pO2 (Temp corrected) 60 mmHg Arterial Blood HCO3 34 mmol/L (21-28) Arterial Blood Base Excess 7 mmol/L (-3-3) FiO2 45 White Blood Count 10.0 x10^3/uL (4.0-11.0) Red Blood Count 4.56 x10^6/uL (4.30-5.70) Hemoglobin 11.9 g/dL (13.0-17.5) Hematocrit 37.9 % (39.0-53.0) Mean Corpuscular Volume 83 fL (79-100) Mean Corpuscular Hemoglobin 26 pg (25-35) Mean Corpuscular Hemoglobin Concent 31 g/dL (31-37) Red Cell Distribution Width 17.5 % (11.5-14.5) Platelet Count 270 x10^3/uL (140-400) Neutrophils (%) (Auto) 71 % (31-73) Lymphocytes (%) (Auto) 13 % (24-48) Monocytes (%) (Auto) 15 % (0-9) Eosinophils (%) (Auto) 0 % (0-3) Basophils (%) (Auto) 1 % (0-3) Neutrophils # (Auto) 7.1 x10^3uL (1.8-7.7) Lymphocytes # (Auto) 1.3 x10^3/uL (1.0-4.8) Monocytes # (Auto) 1.5 x10^3/uL (0.0-1.1) Eosinophils # (Auto) 0.0 x10^3/uL (0.0-0.7) Basophils # (Auto) 0.1 x10^3/uL (0.0-0.2) Sodium Level 137 mmol/L (136-145) Potassium Level 3.6 mmol/L (3.5-5.1) Chloride Level 98 mmol/L (98-107) Carbon Dioxide Level 33 mmol/L (21-32) Anion Gap 6 (6-14) Blood Urea Nitrogen 12 mg/dL (8-26) Creatinine 0.9 mg/dL (0.7-1.3) Estimated GFR (Cockcroft-Gault) 104.2 BUN/Creatinine Ratio 13 (6-20) Glucose Level 150 mg/dL (70-99) Lactic Acid Level 1.5 mmol/L (0.4-2.0) Calcium Level 8.3 mg/dL (8.5-10.1) Total Bilirubin 1.1 mg/dL (0.2-1.0) Aspartate Amino Transf (AST/SGOT) 27 U/L (15-37) Alanine Aminotransferase (ALT/SGPT) 18 U/L (16-63) Alkaline Phosphatase 81 U/L (46-116) Troponin I Quantitative 0.147 ng/mL (0.000-0.055) 0.062 ng/mL (0.000-0.055) < 0.017 ng/mL (0.000-0.055) TG-Djm-I-Type Natriuretic Peptide 1310 pg/mL (0-124) Total Protein 7.8 g/dL (6.4-8.2) Albumin 2.8 g/dL (3.4-5.0) Albumin/Globulin Ratio 0.6 (1.0-1.7) Triglycerides Level 59 mg/dL (0-150) Cholesterol Level 174 mg/dL (0-200) LDL Cholesterol, Calculated 114 mg/dL (0-100) VLDL Cholesterol, Calculated 12 mg/dL (0-40) Non-HDL Cholesterol Calculated 126 mg/dL (0-129) HDL Cholesterol 48 mg/dL (40-60) Cholesterol/HDL Ratio 3.6 Laboratory Tests Test 02/01/17 19:20 02/02/17 01:08 Troponin I Quantitative 0.062 ng/mL (0.000-0.055) < 0.017 ng/mL (0.000-0.055) Medications Active Scripts Medications Dose Route/Sig Max Daily Dose Days Date Category Voltaren (Diclofenac Sodium) 100 Gm Gel..gram. 1 Gm TP BID 02/01/17 Reported Capsaicin 42.5 Gm Cream..g. 42.5 Gm TP 02/01/17 Reported Lisinopril 40 Mg Tablet 1 Tab PO HS 02/01/17 Reported Tylenol (Acetaminophen) 325 Mg Tablet 2 Tab PO PRN Q12HR PRN 02/01/17 Reported Chlorthalidone 25 Mg Tablet 2 Tab PO DAILY 02/01/17 Reported Paxil (Paroxetine Hcl) 20 Mg Tablet 1 Tab PO HS 02/01/17 Reported Metformin Hcl Er (Metformin Hcl) 1,000 Mg Tab.er.24 1,000 Mg PO DAILYBFRSUP 02/01/17 Reported Atorvastatin Calcium 10 Mg Tablet 10 Mg PO HS 02/01/17 Reported Glipizide 5 Mg Tablet 1 Tab PO DAILY 02/01/17 Reported Ibuprofen 400 Mg Tablet 400 Mg PO PRN Q12HR PRN 02/01/17 Reported Impression . ACUTE RESP FAILURE PNEUMONIA SEE ORDERS THANKS CASSIDY VO MD Feb 02, 2017 14:29
[2017-02-02 15:27] VITALS: BP 128/61
--- NOTE | 2017-02-02 16:03 | RAD ---
EXAM: Chest one view. HISTORY: Shortness of breath, pneumonia, dyspnea. COMPARISON: 02/01/2017. FINDINGS: A frontal view of the chest is obtained. The inspiration is small. Airspace opacities in the left greater than right bases are not clearly changed. There is no pneumothorax or pleural effusion. The heart is not enlarged. IMPRESSION: 1. Stable bibasilar atelectasis or infiltrate.
--- NOTE | 2017-02-02 16:36 | RAD ---
CT of the chest without contrast 02/02/2017 Indication: Infiltrate Comparison study: Chest radiograph, earlier today. Chest radiograph, yesterday. Discussion: Multidetector CT imaging of the chest was performed without contrast. Findings: Exam is limited by patient body habitus, motion, abnormal positioning, and inability to tolerate the exam. Heart size appears to be top normal. No significant pericardial effusion is appreciated. Some coronary calcification is noted. Evaluation for mediastinal adenopathy is limited. There is no pneumothorax. There is a focus of consolidation in the right upper lobe with associated volume loss/atelectasis. The bronchi are poorly visualized. There is also areas of volume loss and atelectasis in the right lower lobe. Groundglass infiltrate appears to be present in the right upper lobe. There is mild consolidation in the left lower lobe which could be atelectasis or infiltrate/pneumonia. More linear opacities are seen within the left lower lobe and lingula suggestive of discoid atelectasis. There is a rounded nodular opacity in the left lower lobe measuring 1.4 cm in diameter (axial image 16). This appears to be just underneath the major fissure. Some distal tracheal narrowing is seen is nonspecific given exam technique. Findings could be the sequela of obstructive lung disease. Limited visualization of the upper abdomen demonstrates partially visualized hypodensity in the right kidney most likely a small cyst. Abnormalities are identified. Impression: 1. Limited study 2. Multifocal areas of consolidation and volume loss suggesting atelectasis. An infiltrative process such as pneumonia possible, particularly in the lower lobe on the left and in the medial right upper lobe. Mild groundglass infiltrate is present in the right upper lobe. 3. 1.4 cm nodular opacity in the superior right lower lobe. Recommend follow-up CT chest with contrast the patient better able to tolerate the exam to better evaluate the nodule. 4. Apparent narrowing of the distal trachea in a configuration which could relate to obstructive lung disease.
[2017-02-02] MEDS: metFORMIN XR 500 MG TAB.ER.24H PO SCH (18:20)
--- NOTE | 2017-02-02 18:42 | CONS ---
DATE OF CONSULTATION: 02/02/2017 ATTENDING PHYSICIAN: Stephenie Ceballos DO. REASON FOR CONSULTATION: The patient seen in pulmonary consultation at the request of Dr. Ceballos for acute respiratory failure, abnormal x-ray. HISTORY OF PRESENT ILLNESS: The patient is a 61-year-old -[place] male with a history of COPD, undiagnosed, quit tobacco in 2014, has been incarcerated since early June. Over the last 2-3 days, he had some increasing shortness of breath, cough, mostly productive of discolored sputum. No hemoptysis. Yesterday, he was found to have saturations of 70%. He was transferred to the Emergency Department, placed on oxygen supplementation. Chest x-ray revealed a left lower lobe infiltrate consolidation. He is currently on a Venturi mask. He states he is feeling better. No pleurisy. No headaches, diplopia. He did have some fever and diaphoresis. He normally does not wear oxygen. He does have a history of obstructive sleep apnea. PAST MEDICAL HISTORY: Chronic heart failure, diabetes type 2, hypertension, [place], obesity. PAST SURGICAL HISTORY: No recent major surgeries. REVIEW OF SYSTEMS: CONSTITUTIONAL: Some fever. EYES: No changes in visual acuity. HEENT: No nasal congestion or sore throat. RESPIRATORY: As indicated above. CARDIOVASCULAR: No chest pain. No pressure. GASTROINTESTINAL: No nausea, vomiting, diarrhea. GENITOURINARY: No dysuria or hematuria. MUSCULOSKELETAL: No localized muscle aches or joint pain. SKIN: No new skin rashes. NEUROLOGIC: No headaches, diplopia or blurred vision. ALLERGIES: CHLORPROMAZINE. MEDICATIONS: Current medication list was reviewed. Home medication list was likewise reviewed and he was not on any metered dose inhalers. PHYSICAL EXAMINATION: GENERAL: Obese individual, in no respiratory distress, able to complete full sentences. He is currently on a Venturi mask at 15 liters. Body mass index of 44.6. HEENT: Eyes, the sclerae were nonicteric. NECK: Jugular venous distention could not be assessed secondary to body habitus. CHEST: Full expansion. LUNGS: Rales left greater than right. CARDIOVASCULAR: Regular rate and rhythm with S1 and S2, no S3. ABDOMEN: Obese. EXTREMITIES: Some edema. NEUROLOGIC: The patient was awake, alert, following commands. A detailed neuro exam was not performed. LABORATORY DATA: Reviewed. White count was normal. Hemoglobin and hematocrit were noted. Troponin level was elevated. BNP was elevated. Arterial blood gas; pH of 7.37, PaCO2 of 57, pO2 of 50 on 45% FiO2. IMPRESSION: 1. Acute on chronic hypoxemic hypercapnic respiratory failure. 2. Abnormal x-ray compatible with pneumonia. 3. Gram-negative pneumonia, possibly gram-positive. 4. Morbid obesity. 5. Obstructive sleep apnea/obesity hypoventilation syndrome. 6. Elevated troponin levels, suspect non-ST segment elevation myocardial infarction. 7. Protein malnutrition, present upon admission, moderate to severe. 8. History of tobacco dependence, in remission, suspect chronic obstructive pulmonary disease. PLAN: 1. We will continue current Venturi mask. 2. Antibiotics. 3. P.r.n. BiPAP. 4. CT chest. 5. Monitor blood sugars closely. I do appreciate the privilege in sharing in the patient's care. CASSIDY VO MD DR: RAULITO/chuckie JOB#: [id number] / [id number]
[2017-02-02 19:25] VITALS: BP 127/74
[2017-02-02] MEDS: LACTOBACILLUS RHAMNOSUS GG 1 CAPSULE. PO SCH (20:57)
[2017-02-02] MEDS: PARoxetine 20 MG TABLET PO SCH (20:58)
[2017-02-02] MEDS: ATORVASTATIN CALCIUM 10 MG TABLET. PO SCH (20:58)
[2017-02-02] MEDS: DICLOFENAC SODIUM 1% TOPICAL GEL 100GM TUBE. TP SCH (20:58)
[2017-02-02] MEDS ORDERED: ATORVASTATIN CALCIUM 10 MG TABLET. PO SCH (21:00)
[2017-02-02 23:31] VITALS: BP 97/61
[2017-02-03 03:16] LABS: BASO % 0 % (0-3); EOS % 0 % (0-3); HEMATOCRIT 35.1 % (39.0-53.0); HEMOGLOBIN 10.5 g/dL (13.0-17.5); LYMPH # 1.3 x10^3/uL (1.0-4.8); LYMPH % 10 % (24-48); MEAN CORPUSCULAR HEMOGLOBIN 26 pg (25-35); MEAN CORPUSCULAR HGB CONC 30 g/dL (31-37); MEAN CORPUSCULAR VOLUME 85 fL (79-100); MONO % 12 % (0-9); NEUT % 78 % (31-73); PLATELET COUNT 311 x10^3/uL (140-400); RED BLOOD COUNT 4.11 x10^6/uL (4.30-5.70); RED CELL DISTRIBUTION WIDTH 17.6 % (11.5-14.5); WHITE BLOOD COUNT 12.6 x10^3/uL (4.0-11.0)
[2017-02-03] MEDS: VANCOMYCIN 2 GM in IV DEXTROSE 5% 500 ML IV SCH (03:19)
[2017-02-03 03:21] VITALS: BP 102/54
[2017-02-03] MEDS: VANCOMYCIN PER PHARMACY MC PRN ×3 (03:25→13:53)
[2017-02-03 03:31] LABS: CALCIUM 8.4 mg/dL (8.5-10.1); CREATININE 1.2 mg/dL (0.7-1.3); GFR 74.7; POTASSIUM 4.3 mmol/L (3.5-5.1)
[2017-02-03] MEDS: PIPERACILLIN/TAZO IV Push 4.5 GM VIAL. IVP SCH ×4 (06:28→23:56)
[2017-02-03 07:00] VITALS: BP 110/56
[2017-02-03] MEDS: IPRATRPIUM/ALBUTEROL 0.5/2.5MG 3 ML NEBU. NEB SCH ×4 (07:37→20:10)
[2017-02-03] MEDS ORDERED: ASPIRIN ENTERIC COATED 81 MG TABLET.DR. PO SCH (08:00)
[2017-02-03] MEDS ORDERED: VANCOMYCIN 2 GM in IV NORMAL SALINE 500ML BAG 500 ML IV SCH (08:24)
[2017-02-03] MEDS: glipiZIDE 5 MG TABLET PO SCH (08:50)
[2017-02-03] MEDS: ASPIRIN ENTERIC COATED 81 MG TABLET.DR. PO SCH (08:50)
[2017-02-03] MEDS: LACTOBACILLUS RHAMNOSUS GG 1 CAPSULE. PO SCH ×2 (08:50→21:04)
[2017-02-03] MEDS: DICLOFENAC SODIUM 1% TOPICAL GEL 100GM TUBE. TP SCH ×2 (08:51→21:05)
[2017-02-03] MEDS: LISINOPRIL 10 MG TABLET PO SCH (08:53)
[2017-02-03 11:00] VITALS: BP 127/71
[2017-02-03 14:55] VITALS: BP 102/43
--- NOTE | 2017-02-03 14:58 | PDOC ---
PROGRESS NOTES Chief Complaint Chief Complaint Shortness of Breath CHF Diabetes-Type II Hypertension History of Present Illness History of Present Illness Pt sitting up in chair on venturi mask at 40% O2. Able to converse without extreme difficulty. Vitals Vitals Vital Signs Date Time Temp Pulse Resp B/P (MAP) Pulse Ox O2 Delivery O2 Flow Rate FiO2 02/03/17 11:37 94 Venturi Mask 12.0 02/03/17 11:00 97.7 96 18 127/71 (89) 97.7 Physical Exam General: Alert, Cooperative, mild distress Heart: Regular rate, Normal S1, Normal S2 Lungs: Wheezing, Crackles Abdomen: Other (No pretibial edema) Labs LABS Laboratory Tests Test 02/02/17 17:05 02/02/17 20:56 02/03/17 02:15 02/03/17 07:18 Glucose (Fingerstick) 281 mg/dL (70-99) 262 mg/dL (70-99) 102 mg/dL (70-99) White Blood Count 12.6 x10^3/uL (4.0-11.0) Red Blood Count 4.11 x10^6/uL (4.30-5.70) Hemoglobin 10.5 g/dL (13.0-17.5) Hematocrit 35.1 % (39.0-53.0) Mean Corpuscular Volume 85 fL (79-100) Mean Corpuscular Hemoglobin 26 pg (25-35) Mean Corpuscular Hemoglobin Concent 30 g/dL (31-37) Red Cell Distribution Width 17.6 % (11.5-14.5) Platelet Count 311 x10^3/uL (140-400) Neutrophils (%) (Auto) 78 % (31-73) Lymphocytes (%) (Auto) 10 % (24-48) Monocytes (%) (Auto) 12 % (0-9) Eosinophils (%) (Auto) 0 % (0-3) Basophils (%) (Auto) 0 % (0-3) Neutrophils # (Auto) 9.8 x10^3uL (1.8-7.7) Lymphocytes # (Auto) 1.3 x10^3/uL (1.0-4.8) Monocytes # (Auto) 1.4 x10^3/uL (0.0-1.1) Eosinophils # (Auto) 0.0 x10^3/uL (0.0-0.7) Basophils # (Auto) 0.0 x10^3/uL (0.0-0.2) Sodium Level 144 mmol/L (136-145) Potassium Level 4.3 mmol/L (3.5-5.1) Chloride Level 105 mmol/L (98-107) Carbon Dioxide Level 35 mmol/L (21-32) Anion Gap 4 (6-14) Blood Urea Nitrogen 28 mg/dL (8-26) Creatinine 1.2 mg/dL (0.7-1.3) Estimated GFR (Cockcroft-Gault) 74.7 Glucose Level 129 mg/dL (70-99) Calcium Level 8.4 mg/dL (8.5-10.1) Vancomycin Level Trough 14.2 mcg/mL (10.0-20.0) Vancomycin Last Dose Date Vancomycin Last Dose Time Test 02/03/17 11:21 Glucose (Fingerstick) 141 mg/dL (70-99) Review of Systems Review of Systems Admits to fever, constant chest pain, shortness of breath, cough, and constipation. Denies chills, nausea, vomiting, or diarrhea. Assessment and Plan Assessmemt and Plan Problems Medical Problems: (1) Acute respiratory failure Status: Acute (2) Fever Status: Acute (3) Pneumonia Status: Acute (4) Sepsis Status: Acute ASSESSMENT: Shortness of Breath CHF Diabetes-Type II Hypertension PLAN: On venturi mask Continue breathing treatments Continue antibiotics Double meal serving sizes tomorrow Started Miralax for constipation Started Mucinex for nasal congestion Problems: Comment Review of Relevant I have reviewed the following items jenny (where applicable) has been applied. Labs Laboratory Tests Test 02/01/17 19:20 02/02/17 01:08 02/02/17 14:10 02/02/17 17:05 Troponin I Quantitative 0.062 ng/mL (0.000-0.055) < 0.017 ng/mL (0.000-0.055) < 0.017 ng/mL (0.000-0.055) Hemoglobin A1c 6.8 % (4.8-5.6) Glucose (Fingerstick) 281 mg/dL (70-99) Test 02/02/17 20:56 02/03/17 02:15 02/03/17 07:18 02/03/17 11:21 Glucose (Fingerstick) 262 mg/dL (70-99) 102 mg/dL (70-99) 141 mg/dL (70-99) White Blood Count 12.6 x10^3/uL (4.0-11.0) Red Blood Count 4.11 x10^6/uL (4.30-5.70) Hemoglobin 10.5 g/dL (13.0-17.5) Hematocrit 35.1 % (39.0-53.0) Mean Corpuscular Volume 85 fL (79-100) Mean Corpuscular Hemoglobin 26 pg (25-35) Mean Corpuscular Hemoglobin Concent 30 g/dL (31-37) Red Cell Distribution Width 17.6 % (11.5-14.5) Platelet Count 311 x10^3/uL (140-400) Neutrophils (%) (Auto) 78 % (31-73) Lymphocytes (%) (Auto) 10 % (24-48) Monocytes (%) (Auto) 12 % (0-9) Eosinophils (%) (Auto) 0 % (0-3) Basophils (%) (Auto) 0 % (0-3) Neutrophils # (Auto) 9.8 x10^3uL (1.8-7.7) Lymphocytes # (Auto) 1.3 x10^3/uL (1.0-4.8) Monocytes # (Auto) 1.4 x10^3/uL (0.0-1.1) Eosinophils # (Auto) 0.0 x10^3/uL (0.0-0.7) Basophils # (Auto) 0.0 x10^3/uL (0.0-0.2) Sodium Level 144 mmol/L (136-145) Potassium Level 4.3 mmol/L (3.5-5.1) Chloride Level 105 mmol/L (98-107) Carbon Dioxide Level 35 mmol/L (21-32) Anion Gap 4 (6-14) Blood Urea Nitrogen 28 mg/dL (8-26) Creatinine 1.2 mg/dL (0.7-1.3) Estimated GFR (Cockcroft-Gault) 74.7 Glucose Level 129 mg/dL (70-99) Calcium Level 8.4 mg/dL (8.5-10.1) Vancomycin Level Trough 14.2 mcg/mL (10.0-20.0) Vancomycin Last Dose Date Vancomycin Last Dose Time Laboratory Tests Test 02/02/17 17:05 02/02/17 20:56 02/03/17 02:15 02/03/17 07:18 Glucose (Fingerstick) 281 mg/dL (70-99) 262 mg/dL (70-99) 102 mg/dL (70-99) White Blood Count 12.6 x10^3/uL (4.0-11.0) Red Blood Count 4.11 x10^6/uL (4.30-5.70) Hemoglobin 10.5 g/dL (13.0-17.5) Hematocrit 35.1 % (39.0-53.0) Mean Corpuscular Volume 85 fL (79-100) Mean Corpuscular Hemoglobin 26 pg (25-35) Mean Corpuscular Hemoglobin Concent 30 g/dL (31-37) Red Cell Distribution Width 17.6 % (11.5-14.5) Platelet Count 311 x10^3/uL (140-400) Neutrophils (%) (Auto) 78 % (31-73) Lymphocytes (%) (Auto) 10 % (24-48) Monocytes (%) (Auto) 12 % (0-9) Eosinophils (%) (Auto) 0 % (0-3) Basophils (%) (Auto) 0 % (0-3) Neutrophils # (Auto) 9.8 x10^3uL (1.8-7.7) Lymphocytes # (Auto) 1.3 x10^3/uL (1.0-4.8) Monocytes # (Auto) 1.4 x10^3/uL (0.0-1.1) Eosinophils # (Auto) 0.0 x10^3/uL (0.0-0.7) Basophils # (Auto) 0.0 x10^3/uL (0.0-0.2) Sodium Level 144 mmol/L (136-145) Potassium Level 4.3 mmol/L (3.5-5.1) Chloride Level 105 mmol/L (98-107) Carbon Dioxide Level 35 mmol/L (21-32) Anion Gap 4 (6-14) Blood Urea Nitrogen 28 mg/dL (8-26) Creatinine 1.2 mg/dL (0.7-1.3) Estimated GFR (Cockcroft-Gault) 74.7 Glucose Level 129 mg/dL (70-99) Calcium Level 8.4 mg/dL (8.5-10.1) Vancomycin Level Trough 14.2 mcg/mL (10.0-20.0) Vancomycin Last Dose Date Vancomycin Last Dose Time Test 02/03/17 11:21 Glucose (Fingerstick) 141 mg/dL (70-99) Microbiology 02/01/17 Blood Culture - Preliminary, Resulted NO GROWTH AFTER 2 DAYS 02/02/17 - Final, Resulted 02/02/17 - Final, Resulted 02/02/17 - Final, Resulted 02/02/17 - Final, Resulted 02/02/17 Gram Stain Evaluation - Final, Resulted 02/02/17 Sputum Culture - Preliminary, Resulted 02/02/17 Sputum Result 1 - Final, Resulted Medications Current Medications Acetaminophen (Tylenol) 1,000 mg 1X ONCE PO Last administered on 02/01/17 13 :49; Start 02/01/17 at 12:45; Stop 02/01/17 at 13:19; Status DC Sodium Chloride 1,000 ml @ 200 mls/hr 1X ONCE IV Last administered on 13:49; Start 02/01/17 at 12:45; Stop 02/01/17 at 17:44; Status DC Piperacillin Sod/ Tazobactam Sod (Zosyn Per Pharmacy) 1 each PRN DAILY PRN MC SEE COMMENTS; Start 02/01/17 at 13:00; Stop 02/03/17 at 13:45; Status DC Vancomycin HCl (Vanco Per Pharmacy) 1 each PRN DAILY PRN MC SEE COMMENTS Last administered on 02/03/17 13:53; Start 02/01/17 at 13:00 Levofloxacin/ Dextrose (Levaquin Per Pharmacy) 1 each PRN DAILY PRN MC SEE COMMENTS; Start 02/01/17 at 13:00; Stop 02/03/17 at 13:46; Status DC Albuterol/ Ipratropium (Duoneb) 3 ml 1X ONCE NEB Last administered on 14:30; Start 02/01/17 at 13:15; Stop 02/01/17 at 13:20; Status DC Albuterol/ Ipratropium (Duoneb) 3 ml RTQID NEB Last administered on 02/02/17 11:18; Start 02/01/17 at 16:00; Stop 02/02/17 at 15:59; Status DC Albuterol Sulfate (Ventolin Neb Soln) 10 mg 1X ONCE CONT NEB Last administered on 02/01/17 14:20; Start 02/01/17 at 13:15; Stop 02/01/17 at 13 :19; Status DC Levofloxacin/ Dextrose 100 ml @ 100 mls/hr 1X ONCE IV Last administered on 13:49; Start 02/01/17 at 13:30; Stop 02/01/17 at 14:29; Status DC Piperacillin Sod/ Tazobactam Sod (Zosyn) 4.5 gm 1X ONCE IVP Last administered on 02/01/17 14:43; Start 02/01/17 at 13:30; Stop 02/01/17 at 13:31; Status DC Vancomycin HCl 2 gm/Dextrose 500 ml @ 250 mls/hr 1X ONCE IV Last administered on 02/01/17 14:43; Start 02/01/17 at 14:00; Stop 02/01/17 at 15 :59; Status DC Levofloxacin/ Dextrose 150 ml @ 100 mls/hr Q24H IV Last administered on 15:20; Start 02/02/17 at 15:00 Piperacillin Sod/ Tazobactam Sod (Zosyn) 4.5 gm Q6HRS IVP Last administered on 02/03/17 12:44; Start 02/01/17 at 19:00 Aspirin (Ecotrin) 81 mg DAILYWBKFT PO Last administered on 02/03/17 08:50; Start 02/01/17 at 16:00 Vancomycin HCl 2 gm/Dextrose 500 ml @ 250 mls/hr Q8H IV ; Start 02/01/17 at 23 :00; Stop 02/01/17 at 23:00; Status DC Vancomycin HCl 1 each 1X ONCE MC Last administered on 02/03/17 02:30; Start 02/03/17 at 02:30; Stop 02/03/17 at 02:31; Status DC Vancomycin HCl 2 gm/Dextrose 500 ml @ 250 mls/hr Q12H IV Last administered on 02/03/17 03:19; Start 02/02/17 at 03:00; Stop 02/03/17 at 08:24; Status DC Pneumococcal Polyvalent Vaccine (Pneumovax 23) 0.5 ml ONCE ONCE VAX IM Last administered on 02/02/17 14:24; Start 02/02/17 at 09:00; Stop 02/02/17 at 09 :01; Status DC Morphine Sulfate 2 mg PRN Q2HR PRN IV PAIN Last administered on 02/02/17 16: 48; Start 02/02/17 at 09:00 Ketorolac Tromethamine (Toradol) 30 mg PRN Q6HRS PRN IV PAIN Last administered on 02/02/17 20:59; Start 02/02/17 at 09:00; Stop 02/07/17 at 08:59 Aspirin (Ecotrin) 81 mg DAILYWBKFT PO ; Start 02/03/17 at 08:00; Status Cancel Atorvastatin Calcium (Lipitor) 10 mg QHS PO Last administered on 02/02/17 20: 58; Start 02/02/17 at 21:00 Lisinopril (Prinivil) 10 mg DAILY PO Last administered on 02/03/17 08:53; Start 02/02/17 at 12:00 Acetaminophen (Tylenol) 650 mg PRN Q12HR PRN PO PAIN; Start 02/02/17 at 13:45 Atorvastatin Calcium (Lipitor) 10 mg HS PO ; Start 02/02/17 at 21:00; Status UNV Diclofenac Sodium (Voltaren) 1 traci BID TP Last administered on 02/03/17 08:51 ; Start 02/02/17 at 21:00 Glipizide (Glucotrol) 5 mg DAILYWBKFT PO Last administered on 02/03/17 08:50 ; Start 02/03/17 at 08:00 Ibuprofen (Motrin) 400 mg PRN Q12HR PRN PO INFLAMMATION; Start 02/02/17 at 13: 45; Status Cancel Paroxetine HCl (Paxil) 20 mg HS PO Last administered on 02/02/17 20:58; Start 02/02/17 at 21:00 Metformin HCl (Glucophage) 1,000 mg DAILYBFRSUP PO Last administered on 17:48; Start 02/02/17 at 17:00; Stop 02/02/17 at 17:55; Status DC Lactobacillus Rhamnosus (Culturelle) 1 cap BID PO Last administered on 08:50; Start 02/02/17 at 21:00 Metformin HCl (Glucophage Xr) 1,000 mg DAILYBFRSUP PO Last administered on 18:20; Start 02/02/17 at 18:00 Albuterol/ Ipratropium (Duoneb) 3 ml RTQID NEB Last administered on 02/03/17 11:35; Start 02/03/17 at 08:00 Vancomycin HCl 1 each 1X ONCE MC ; Start 02/04/17 at 14:30; Stop 02/04/17 at 14:31 Vancomycin HCl 2 gm/Sodium Chloride 500 ml @ 250 mls/hr Q12H IV ; Start at 08:24; Stop 02/03/17 at 08:25; Status DC Vancomycin HCl 2 gm/Sodium Chloride 500 ml @ 250 mls/hr Q12H IV ; Start at 15:00 Active Scripts Active Reported Voltaren (Diclofenac Sodium) 100 Gm Gel..gram. 1 Gm TP BID Capsaicin 42.5 Gm Cream..g. 42.5 Gm TP Lisinopril 40 Mg Tablet 1 Tab PO HS Tylenol (Acetaminophen) 325 Mg Tablet 2 Tab PO PRN Q12HR PRN Chlorthalidone 25 Mg Tablet 2 Tab PO DAILY Paxil (Paroxetine Hcl) 20 Mg Tablet 1 Tab PO HS Metformin Hcl Er (Metformin Hcl) 1,000 Mg Tab.er.24 1,000 Mg PO DAILYBFRSUP Atorvastatin Calcium 10 Mg Tablet 10 Mg PO HS Glipizide 5 Mg Tablet 1 Tab PO DAILY Ibuprofen 400 Mg Tablet 400 Mg PO PRN Q12HR PRN Vitals/I & O Vital Sign - Last 24 Hours 02/02/17 02/02/17 02/02/17 02/02/17 15:27 16:44 16:48 17:18 Temp 97.7 97.7 Pulse 91 Resp 18 24 B/P (MAP) 128/61 (83) Pulse Ox 94 98 O2 Delivery NonRebreather Mask BiPAP/CPAP BiPAP/CPAP BiPAP/CPAP O2 Flow Rate 15.0 02/02/17 02/02/17 02/02/17/21/17 19:16 19:25 19:25 21:05 Temp 98.4 98.4 Pulse 95 Resp 21 B/P (MAP) 127/74 (91) Pulse Ox 94 97 96 O2 Delivery BiPAP/CPAP BiPAP/CPAP Bi-pap BiPAP/CPAP O2 Flow Rate 60.0 02/02/17 02/02/17 02/03/17 02/03/17 23:21 23:31 01:25 03:21 Temp 98.1 97.7 98.1 97.7 Pulse 95 85 Resp 20 B/P (MAP) 97/61 (73) 102/54 (70) Pulse Ox 95 95 95 93 O2 Delivery Venturi Mask Venturi Mask Venturi Mask Venturi Mask O2 Flow Rate 15.0 15.0 02/03/17 02/03/17 02/03/17 02/03/17 04:41 07:00 07:39 08:08 Temp 97.6 97.6 Pulse 86 Resp 20 B/P (MAP) 110/56 (74) Pulse Ox 96 95 98 O2 Delivery Venturi Mask Venturi Mask Venturi Mask Venturi Mask O2 Flow Rate 15.0 15.0 15.0 12.0 02/03/17 02/03/17 02/03/17 08:53 11:00 11:37 Temp 97.7 97.7 Pulse 90 96 Resp 18 B/P (MAP) 140/80 127/71 (89) Pulse Ox 92 94 O2 Delivery Venturi Mask Venturi Mask O2 Flow Rate 12.0 12.0 Intake and Output 02/02/17 02/02/17 02/03/17 15:00 23:00 07:00 Intake Total 1160 ml 320 ml 1440 ml Output Total 550 ml Balance 1160 ml 320 ml 890 ml KRISTYNIAL K III DO Feb 03, 2017 14:58
[2017-02-03] MEDS: VANCOMYCIN 2 GM in IV NORMAL SALINE 500ML BAG 500 ML IV SCH (15:26)
[2017-02-03] MEDS: POLYETHYLENE GLYCOL 3350 17 GM PACKET. PO SCH (15:27)
--- NOTE | 2017-02-03 17:09 | PDOC ---
PULMONARY PROGRESS NOTES Subjective PT STILL SOA Vitals Vital Signs Date Time Temp Pulse Resp B/P (MAP) Pulse Ox O2 Delivery O2 Flow Rate FiO2 02/03/17 15:43 96 Venturi Mask 12.0 02/03/17 14:55 98.9 99 102/43 (62) 98.9 02/03/17 11:00 18 ROS: No Nausea, No Chest Pain, No Abdominal Pain Lungs: Wheezing, Crackles Cardiovascular: S1, S2 Abdomen: Soft, Non-tender Neuro Exam: Alert Extremities: Other (EDEMA) Skin: Warm Labs Laboratory Tests Test 02/01/17 19:20 02/02/17 01:08 02/02/17 14:10 02/02/17 17:05 Troponin I Quantitative 0.062 ng/mL (0.000-0.055) < 0.017 ng/mL (0.000-0.055) < 0.017 ng/mL (0.000-0.055) Hemoglobin A1c 6.8 % (4.8-5.6) Glucose (Fingerstick) 281 mg/dL (70-99) Test 02/02/17 20:56 02/03/17 02:15 02/03/17 07:18 02/03/17 11:21 Glucose (Fingerstick) 262 mg/dL (70-99) 102 mg/dL (70-99) 141 mg/dL (70-99) White Blood Count 12.6 x10^3/uL (4.0-11.0) Red Blood Count 4.11 x10^6/uL (4.30-5.70) Hemoglobin 10.5 g/dL (13.0-17.5) Hematocrit 35.1 % (39.0-53.0) Mean Corpuscular Volume 85 fL (79-100) Mean Corpuscular Hemoglobin 26 pg (25-35) Mean Corpuscular Hemoglobin Concent 30 g/dL (31-37) Red Cell Distribution Width 17.6 % (11.5-14.5) Platelet Count 311 x10^3/uL (140-400) Neutrophils (%) (Auto) 78 % (31-73) Lymphocytes (%) (Auto) 10 % (24-48) Monocytes (%) (Auto) 12 % (0-9) Eosinophils (%) (Auto) 0 % (0-3) Basophils (%) (Auto) 0 % (0-3) Neutrophils # (Auto) 9.8 x10^3uL (1.8-7.7) Lymphocytes # (Auto) 1.3 x10^3/uL (1.0-4.8) Monocytes # (Auto) 1.4 x10^3/uL (0.0-1.1) Eosinophils # (Auto) 0.0 x10^3/uL (0.0-0.7) Basophils # (Auto) 0.0 x10^3/uL (0.0-0.2) Sodium Level 144 mmol/L (136-145) Potassium Level 4.3 mmol/L (3.5-5.1) Chloride Level 105 mmol/L (98-107) Carbon Dioxide Level 35 mmol/L (21-32) Anion Gap 4 (6-14) Blood Urea Nitrogen 28 mg/dL (8-26) Creatinine 1.2 mg/dL (0.7-1.3) Estimated GFR (Cockcroft-Gault) 74.7 Glucose Level 129 mg/dL (70-99) Calcium Level 8.4 mg/dL (8.5-10.1) Vancomycin Level Trough 14.2 mcg/mL (10.0-20.0) Vancomycin Last Dose Date Vancomycin Last Dose Time Test 02/03/17 16:48 Glucose (Fingerstick) 118 mg/dL (70-99) Laboratory Tests Test 02/02/17 20:56 02/03/17 02:15 02/03/17 07:18 02/03/17 11:21 Glucose (Fingerstick) 262 mg/dL (70-99) 102 mg/dL (70-99) 141 mg/dL (70-99) White Blood Count 12.6 x10^3/uL (4.0-11.0) Red Blood Count 4.11 x10^6/uL (4.30-5.70) Hemoglobin 10.5 g/dL (13.0-17.5) Hematocrit 35.1 % (39.0-53.0) Mean Corpuscular Volume 85 fL (79-100) Mean Corpuscular Hemoglobin 26 pg (25-35) Mean Corpuscular Hemoglobin Concent 30 g/dL (31-37) Red Cell Distribution Width 17.6 % (11.5-14.5) Platelet Count 311 x10^3/uL (140-400) Neutrophils (%) (Auto) 78 % (31-73) Lymphocytes (%) (Auto) 10 % (24-48) Monocytes (%) (Auto) 12 % (0-9) Eosinophils (%) (Auto) 0 % (0-3) Basophils (%) (Auto) 0 % (0-3) Neutrophils # (Auto) 9.8 x10^3uL (1.8-7.7) Lymphocytes # (Auto) 1.3 x10^3/uL (1.0-4.8) Monocytes # (Auto) 1.4 x10^3/uL (0.0-1.1) Eosinophils # (Auto) 0.0 x10^3/uL (0.0-0.7) Basophils # (Auto) 0.0 x10^3/uL (0.0-0.2) Sodium Level 144 mmol/L (136-145) Potassium Level 4.3 mmol/L (3.5-5.1) Chloride Level 105 mmol/L (98-107) Carbon Dioxide Level 35 mmol/L (21-32) Anion Gap 4 (6-14) Blood Urea Nitrogen 28 mg/dL (8-26) Creatinine 1.2 mg/dL (0.7-1.3) Estimated GFR (Cockcroft-Gault) 74.7 Glucose Level 129 mg/dL (70-99) Calcium Level 8.4 mg/dL (8.5-10.1) Vancomycin Level Trough 14.2 mcg/mL (10.0-20.0) Vancomycin Last Dose Date Vancomycin Last Dose Time Test 02/03/17 16:48 Glucose (Fingerstick) 118 mg/dL (70-99) Medications Active Scripts Medications Dose Route/Sig Max Daily Dose Days Date Category Voltaren (Diclofenac Sodium) 100 Gm Gel..gram. 1 Gm TP BID 02/01/17 Reported Capsaicin 42.5 Gm Cream..g. 42.5 Gm TP 02/01/17 Reported Lisinopril 40 Mg Tablet 1 Tab PO HS 02/01/17 Reported Tylenol (Acetaminophen) 325 Mg Tablet 2 Tab PO PRN Q12HR PRN 02/01/17 Reported Chlorthalidone 25 Mg Tablet 2 Tab PO DAILY 02/01/17 Reported Paxil (Paroxetine Hcl) 20 Mg Tablet 1 Tab PO HS 02/01/17 Reported Metformin Hcl Er (Metformin Hcl) 1,000 Mg Tab.er.24 1,000 Mg PO DAILYBFRSUP 02/01/17 Reported Atorvastatin Calcium 10 Mg Tablet 10 Mg PO HS 02/01/17 Reported Glipizide 5 Mg Tablet 1 Tab PO DAILY 02/01/17 Reported Ibuprofen 400 Mg Tablet 400 Mg PO PRN Q12HR PRN 02/01/17 Reported Impression . 1. Acute on chronic hypoxemic hypercapnic respiratory failure. 2. Abnormal x-ray compatible with pneumonia. 3. Gram-negative pneumonia, possibly gram-positive. 4. Morbid obesity. 5. Obstructive sleep apnea/obesity hypoventilation syndrome. 6. Elevated troponin levels, suspect non-ST segment elevation myocardial infarction. 7. Protein malnutrition, present upon admission, moderate to severe. 8. History of tobacco dependence, in remission, suspect chronic obstructive pulmonary disease. Impression: 1. Limited study 2. Multifocal areas of consolidation and volume loss suggesting atelectasis. An infiltrative process such as pneumonia possible, particularly in the lower lobe on the left and in the medial right upper lobe. Mild groundglass infiltrate is present in the right upper lobe. 3. 1.4 cm nodular opacity in the superior right lower lobe. Recommend follow-up CT chest with contrast the patient better able to tolerate the exam to better evaluate the nodule. 4. Apparent narrowing of the distal trachea in a configuration which could relate to obstructive lung disease. Plan . NEEDS REPEAT CT IN 2-3 MONTHS TREAT FOR PNEUMONIA FOR NOW 1. We will continue current Venturi mask. 2. Antibiotics. 3. P.r.n. BiPAP. 4. CT chest, REPORT NOTED 5. Monitor blood sugars closely. CASSIDY VO MD Feb 03, 2017 17:09
[2017-02-03] MEDS: metFORMIN XR 500 MG TAB.ER.24H PO SCH (18:06)
[2017-02-03 18:55] VITALS: BP 135/79
[2017-02-03] MEDS: KETOROLAC 30 MG/ML INJ. IV PRN (21:05)
[2017-02-03] MEDS: PARoxetine 20 MG TABLET PO SCH (21:05)
[2017-02-03] MEDS: guaiFENesin DM 200MG/20MG 10 ML SYRUP PO PRN (21:05)
[2017-02-03] MEDS: ATORVASTATIN CALCIUM 10 MG TABLET. PO SCH (21:06)
[2017-02-03 22:41] VITALS: BP 136/79
[2017-02-04 02:29] VITALS: BP 164/76
[2017-02-04] MEDS: VANCOMYCIN 2 GM in IV NORMAL SALINE 500ML BAG 500 ML IV SCH (02:32)
[2017-02-04 05:12] LABS: BASO % 1 % (0-3); EOS % 1 % (0-3); HEMATOCRIT 33.2 % (39.0-53.0); HEMOGLOBIN 10.2 g/dL (13.0-17.5); LYMPH # 1.7 x10^3/uL (1.0-4.8); LYMPH % 19 % (24-48); MEAN CORPUSCULAR HEMOGLOBIN 26 pg (25-35); MEAN CORPUSCULAR HGB CONC 31 g/dL (31-37); MEAN CORPUSCULAR VOLUME 85 fL (79-100); MONO % 15 % (0-9); NEUT % 64 % (31-73); PLATELET COUNT 312 x10^3/uL (140-400); RED BLOOD COUNT 3.91 x10^6/uL (4.30-5.70); RED CELL DISTRIBUTION WIDTH 17.9 % (11.5-14.5); WHITE BLOOD COUNT 8.7 x10^3/uL (4.0-11.0)
[2017-02-04 05:35] LABS: CALCIUM 8.3 mg/dL (8.5-10.1); CREATININE 0.8 mg/dL (0.7-1.3); GFR 119.3; POTASSIUM 4.2 mmol/L (3.5-5.1)
[2017-02-04] MEDS: PIPERACILLIN/TAZO IV Push 4.5 GM VIAL. IVP SCH ×3 (05:57→19:16)
[2017-02-04 07:00] VITALS: BP 155/77
[2017-02-04] MEDS: IPRATRPIUM/ALBUTEROL 0.5/2.5MG 3 ML NEBU. NEB SCH ×4 (08:04→19:23)
[2017-02-04] MEDS: LISINOPRIL 10 MG TABLET PO SCH (08:31)
[2017-02-04] MEDS: DICLOFENAC SODIUM 1% TOPICAL GEL 100GM TUBE. TP SCH ×2 (08:32→20:45)
[2017-02-04] MEDS: POLYETHYLENE GLYCOL 3350 17 GM PACKET. PO SCH (08:32)
[2017-02-04] MEDS: ASPIRIN ENTERIC COATED 81 MG TABLET.DR. PO SCH (08:32)
[2017-02-04] MEDS: LACTOBACILLUS RHAMNOSUS GG 1 CAPSULE. PO SCH ×2 (08:32→20:44)
[2017-02-04] MEDS: glipiZIDE 5 MG TABLET PO SCH (08:32)
[2017-02-04 11:00] VITALS: BP 156/80
--- NOTE | 2017-02-04 11:11 | PDOC ---
PROGRESS NOTES Chief Complaint Chief Complaint Shortness of Breath CHF Diabetes-Type II Hypertension History of Present Illness History of Present Illness Pt sitting up in chair on nasal canula 4L. Able to converse without difficulty. Vitals Vitals Vital Signs Date Time Temp Pulse Resp B/P (MAP) Pulse Ox O2 Delivery O2 Flow Rate FiO2 02/04/17 08:31 86 155/77 02/04/17 08:06 97 Venturi Mask 12.0 02/04/17 07:00 98.3 20 98.3 Physical Exam General: Alert, Cooperative, No acute distress Heart: Regular rate, Normal S1, Normal S2 Lungs: Clear Labs LABS Laboratory Tests Test 02/03/17 11:21 02/03/17 16:48 02/03/17 21:03 02/04/17 04:40 Glucose (Fingerstick) 141 mg/dL (70-99) 118 mg/dL (70-99) 122 mg/dL (70-99) White Blood Count 8.7 x10^3/uL (4.0-11.0) Red Blood Count 3.91 x10^6/uL (4.30-5.70) Hemoglobin 10.2 g/dL (13.0-17.5) Hematocrit 33.2 % (39.0-53.0) Mean Corpuscular Volume 85 fL (79-100) Mean Corpuscular Hemoglobin 26 pg (25-35) Mean Corpuscular Hemoglobin Concent 31 g/dL (31-37) Red Cell Distribution Width 17.9 % (11.5-14.5) Platelet Count 312 x10^3/uL (140-400) Neutrophils (%) (Auto) 64 % (31-73) Lymphocytes (%) (Auto) 19 % (24-48) Monocytes (%) (Auto) 15 % (0-9) Eosinophils (%) (Auto) 1 % (0-3) Basophils (%) (Auto) 1 % (0-3) Neutrophils # (Auto) 5.6 x10^3uL (1.8-7.7) Lymphocytes # (Auto) 1.7 x10^3/uL (1.0-4.8) Monocytes # (Auto) 1.3 x10^3/uL (0.0-1.1) Eosinophils # (Auto) 0.1 x10^3/uL (0.0-0.7) Basophils # (Auto) 0.0 x10^3/uL (0.0-0.2) Sodium Level 147 mmol/L (136-145) Potassium Level 4.2 mmol/L (3.5-5.1) Chloride Level 108 mmol/L (98-107) Carbon Dioxide Level 36 mmol/L (21-32) Anion Gap 3 (6-14) Blood Urea Nitrogen 19 mg/dL (8-26) Creatinine 0.8 mg/dL (0.7-1.3) Estimated GFR (Cockcroft-Gault) 119.3 Glucose Level 119 mg/dL (70-99) Calcium Level 8.3 mg/dL (8.5-10.1) Test 02/04/17 07:43 Glucose (Fingerstick) 157 mg/dL (70-99) Review of Systems Review of Systems Admits to dizziness, headache, pleuritic chest pain, cough, and shortness of breath. Denies fever, chills, or night sweats. Assessment and Plan Assessmemt and Plan Problems Medical Problems: (1) Acute respiratory failure Status: Acute (2) Fever Status: Acute (3) Pneumonia Status: Acute (4) Sepsis Status: Acute ASSESSMENT: Shortness of Breath CHF Diabetes-Type II Hypertension PLAN: Continue cardiac monitoring Continue breathing treatments Continue to monitor labs Continue antibiotics Followup with PCP after discharge Problems: Comment Review of Relevant I have reviewed the following items jenny (where applicable) has been applied. Labs Laboratory Tests Test 02/02/17 14:10 02/02/17 17:05 02/02/17 20:56 02/03/17 02:15 Hemoglobin A1c 6.8 % (4.8-5.6) Troponin I Quantitative < 0.017 ng/mL (0.000-0.055) Glucose (Fingerstick) 281 mg/dL (70-99) 262 mg/dL (70-99) White Blood Count 12.6 x10^3/uL (4.0-11.0) Red Blood Count 4.11 x10^6/uL (4.30-5.70) Hemoglobin 10.5 g/dL (13.0-17.5) Hematocrit 35.1 % (39.0-53.0) Mean Corpuscular Volume 85 fL (79-100) Mean Corpuscular Hemoglobin 26 pg (25-35) Mean Corpuscular Hemoglobin Concent 30 g/dL (31-37) Red Cell Distribution Width 17.6 % (11.5-14.5) Platelet Count 311 x10^3/uL (140-400) Neutrophils (%) (Auto) 78 % (31-73) Lymphocytes (%) (Auto) 10 % (24-48) Monocytes (%) (Auto) 12 % (0-9) Eosinophils (%) (Auto) 0 % (0-3) Basophils (%) (Auto) 0 % (0-3) Neutrophils # (Auto) 9.8 x10^3uL (1.8-7.7) Lymphocytes # (Auto) 1.3 x10^3/uL (1.0-4.8) Monocytes # (Auto) 1.4 x10^3/uL (0.0-1.1) Eosinophils # (Auto) 0.0 x10^3/uL (0.0-0.7) Basophils # (Auto) 0.0 x10^3/uL (0.0-0.2) Sodium Level 144 mmol/L (136-145) Potassium Level 4.3 mmol/L (3.5-5.1) Chloride Level 105 mmol/L (98-107) Carbon Dioxide Level 35 mmol/L (21-32) Anion Gap 4 (6-14) Blood Urea Nitrogen 28 mg/dL (8-26) Creatinine 1.2 mg/dL (0.7-1.3) Estimated GFR (Cockcroft-Gault) 74.7 Glucose Level 129 mg/dL (70-99) Calcium Level 8.4 mg/dL (8.5-10.1) Vancomycin Level Trough 14.2 mcg/mL (10.0-20.0) Vancomycin Last Dose Date Vancomycin Last Dose Time Test 02/03/17 07:18 02/03/17 11:21 02/03/17 16:48 02/03/17 21:03 Glucose (Fingerstick) 102 mg/dL (70-99) 141 mg/dL (70-99) 118 mg/dL (70-99) 122 mg/dL (70-99) Test 02/04/17 04:40 02/04/17 07:43 White Blood Count 8.7 x10^3/uL (4.0-11.0) Red Blood Count 3.91 x10^6/uL (4.30-5.70) Hemoglobin 10.2 g/dL (13.0-17.5) Hematocrit 33.2 % (39.0-53.0) Mean Corpuscular Volume 85 fL (79-100) Mean Corpuscular Hemoglobin 26 pg (25-35) Mean Corpuscular Hemoglobin Concent 31 g/dL (31-37) Red Cell Distribution Width 17.9 % (11.5-14.5) Platelet Count 312 x10^3/uL (140-400) Neutrophils (%) (Auto) 64 % (31-73) Lymphocytes (%) (Auto) 19 % (24-48) Monocytes (%) (Auto) 15 % (0-9) Eosinophils (%) (Auto) 1 % (0-3) Basophils (%) (Auto) 1 % (0-3) Neutrophils # (Auto) 5.6 x10^3uL (1.8-7.7) Lymphocytes # (Auto) 1.7 x10^3/uL (1.0-4.8) Monocytes # (Auto) 1.3 x10^3/uL (0.0-1.1) Eosinophils # (Auto) 0.1 x10^3/uL (0.0-0.7) Basophils # (Auto) 0.0 x10^3/uL (0.0-0.2) Sodium Level 147 mmol/L (136-145) Potassium Level 4.2 mmol/L (3.5-5.1) Chloride Level 108 mmol/L (98-107) Carbon Dioxide Level 36 mmol/L (21-32) Anion Gap 3 (6-14) Blood Urea Nitrogen 19 mg/dL (8-26) Creatinine 0.8 mg/dL (0.7-1.3) Estimated GFR (Cockcroft-Gault) 119.3 Glucose Level 119 mg/dL (70-99) Calcium Level 8.3 mg/dL (8.5-10.1) Glucose (Fingerstick) 157 mg/dL (70-99) Laboratory Tests Test 02/03/17 11:21 02/03/17 16:48 02/03/17 21:03 02/04/17 04:40 Glucose (Fingerstick) 141 mg/dL (70-99) 118 mg/dL (70-99) 122 mg/dL (70-99) White Blood Count 8.7 x10^3/uL (4.0-11.0) Red Blood Count 3.91 x10^6/uL (4.30-5.70) Hemoglobin 10.2 g/dL (13.0-17.5) Hematocrit 33.2 % (39.0-53.0) Mean Corpuscular Volume 85 fL (79-100) Mean Corpuscular Hemoglobin 26 pg (25-35) Mean Corpuscular Hemoglobin Concent 31 g/dL (31-37) Red Cell Distribution Width 17.9 % (11.5-14.5) Platelet Count 312 x10^3/uL (140-400) Neutrophils (%) (Auto) 64 % (31-73) Lymphocytes (%) (Auto) 19 % (24-48) Monocytes (%) (Auto) 15 % (0-9) Eosinophils (%) (Auto) 1 % (0-3) Basophils (%) (Auto) 1 % (0-3) Neutrophils # (Auto) 5.6 x10^3uL (1.8-7.7) Lymphocytes # (Auto) 1.7 x10^3/uL (1.0-4.8) Monocytes # (Auto) 1.3 x10^3/uL (0.0-1.1) Eosinophils # (Auto) 0.1 x10^3/uL (0.0-0.7) Basophils # (Auto) 0.0 x10^3/uL (0.0-0.2) Sodium Level 147 mmol/L (136-145) Potassium Level 4.2 mmol/L (3.5-5.1) Chloride Level 108 mmol/L (98-107) Carbon Dioxide Level 36 mmol/L (21-32) Anion Gap 3 (6-14) Blood Urea Nitrogen 19 mg/dL (8-26) Creatinine 0.8 mg/dL (0.7-1.3) Estimated GFR (Cockcroft-Gault) 119.3 Glucose Level 119 mg/dL (70-99) Calcium Level 8.3 mg/dL (8.5-10.1) Test 02/04/17 07:43 Glucose (Fingerstick) 157 mg/dL (70-99) Microbiology 02/01/17 Blood Culture - Preliminary, Resulted NO GROWTH AFTER 2 DAYS 02/02/17 - Final, Resulted 02/02/17 - Final, Resulted 02/02/17 - Final, Resulted 02/02/17 - Final, Resulted 02/02/17 Gram Stain Evaluation - Final, Resulted 02/02/17 Sputum Culture - Preliminary, Resulted 02/02/17 Sputum Result 1 - Final, Resulted Medications Current Medications Acetaminophen (Tylenol) 1,000 mg 1X ONCE PO Last administered on 02/01/17 13 :49; Start 02/01/17 at 12:45; Stop 02/01/17 at 13:19; Status DC Sodium Chloride 1,000 ml @ 200 mls/hr 1X ONCE IV Last administered on 13:49; Start 02/01/17 at 12:45; Stop 02/01/17 at 17:44; Status DC Piperacillin Sod/ Tazobactam Sod (Zosyn Per Pharmacy) 1 each PRN DAILY PRN MC SEE COMMENTS; Start 02/01/17 at 13:00; Stop 02/03/17 at 13:45; Status DC Vancomycin HCl (Vanco Per Pharmacy) 1 each PRN DAILY PRN MC SEE COMMENTS Last administered on 02/03/17 13:53; Start 02/01/17 at 13:00 Levofloxacin/ Dextrose (Levaquin Per Pharmacy) 1 each PRN DAILY PRN MC SEE COMMENTS; Start 02/01/17 at 13:00; Stop 02/03/17 at 13:46; Status DC Albuterol/ Ipratropium (Duoneb) 3 ml 1X ONCE NEB Last administered on 14:30; Start 02/01/17 at 13:15; Stop 02/01/17 at 13:20; Status DC Albuterol/ Ipratropium (Duoneb) 3 ml RTQID NEB Last administered on 02/02/17 11:18; Start 02/01/17 at 16:00; Stop 02/02/17 at 15:59; Status DC Albuterol Sulfate (Ventolin Neb Soln) 10 mg 1X ONCE CONT NEB Last administered on 02/01/17 14:20; Start 02/01/17 at 13:15; Stop 02/01/17 at 13 :19; Status DC Levofloxacin/ Dextrose 100 ml @ 100 mls/hr 1X ONCE IV Last administered on 13:49; Start 02/01/17 at 13:30; Stop 02/01/17 at 14:29; Status DC Piperacillin Sod/ Tazobactam Sod (Zosyn) 4.5 gm 1X ONCE IVP Last administered on 02/01/17 14:43; Start 02/01/17 at 13:30; Stop 02/01/17 at 13:31; Status DC Vancomycin HCl 2 gm/Dextrose 500 ml @ 250 mls/hr 1X ONCE IV Last administered on 02/01/17 14:43; Start 02/01/17 at 14:00; Stop 02/01/17 at 15 :59; Status DC Levofloxacin/ Dextrose 150 ml @ 100 mls/hr Q24H IV Last administered on 15:27; Start 02/02/17 at 15:00 Piperacillin Sod/ Tazobactam Sod (Zosyn) 4.5 gm Q6HRS IVP Last administered on 02/04/17 05:57; Start 02/01/17 at 19:00 Aspirin (Ecotrin) 81 mg DAILYWBKFT PO Last administered on 02/04/17 08:32; Start 02/01/17 at 16:00 Vancomycin HCl 2 gm/Dextrose 500 ml @ 250 mls/hr Q8H IV ; Start 02/01/17 at 23 :00; Stop 02/01/17 at 23:00; Status DC Vancomycin HCl 1 each 1X ONCE MC Last administered on 02/03/17 02:30; Start 02/03/17 at 02:30; Stop 02/03/17 at 02:31; Status DC Vancomycin HCl 2 gm/Dextrose 500 ml @ 250 mls/hr Q12H IV Last administered on 02/03/17 03:19; Start 02/02/17 at 03:00; Stop 02/03/17 at 08:24; Status DC Pneumococcal Polyvalent Vaccine (Pneumovax 23) 0.5 ml ONCE ONCE VAX IM Last administered on 02/02/17 14:24; Start 02/02/17 at 09:00; Stop 02/02/17 at 09 :01; Status DC Morphine Sulfate 2 mg PRN Q2HR PRN IV PAIN Last administered on 02/02/17 16: 48; Start 02/02/17 at 09:00 Ketorolac Tromethamine (Toradol) 30 mg PRN Q6HRS PRN IV PAIN Last administered on 02/03/17 21:05; Start 02/02/17 at 09:00; Stop 02/07/17 at 08:59 Aspirin (Ecotrin) 81 mg DAILYWBKFT PO ; Start 02/03/17 at 08:00; Status Cancel Atorvastatin Calcium (Lipitor) 10 mg QHS PO Last administered on 02/03/17 21: 06; Start 02/02/17 at 21:00 Lisinopril (Prinivil) 10 mg DAILY PO Last administered on 02/04/17 08:31; Start 02/02/17 at 12:00 Acetaminophen (Tylenol) 650 mg PRN Q12HR PRN PO PAIN; Start 02/02/17 at 13:45 Atorvastatin Calcium (Lipitor) 10 mg HS PO ; Start 02/02/17 at 21:00; Status UNV Diclofenac Sodium (Voltaren) 1 traci BID TP Last administered on 02/04/17 08:32 ; Start 02/02/17 at 21:00 Glipizide (Glucotrol) 5 mg DAILYWBKFT PO Last administered on 02/04/17 08:32 ; Start 02/03/17 at 08:00 Ibuprofen (Motrin) 400 mg PRN Q12HR PRN PO INFLAMMATION; Start 02/02/17 at 13: 45; Status Cancel Paroxetine HCl (Paxil) 20 mg HS PO Last administered on 02/03/17 21:05; Start 02/02/17 at 21:00 Metformin HCl (Glucophage) 1,000 mg DAILYBFRSUP PO Last administered on 17:48; Start 02/02/17 at 17:00; Stop 02/02/17 at 17:55; Status DC Lactobacillus Rhamnosus (Culturelle) 1 cap BID PO Last administered on 08:32; Start 02/02/17 at 21:00 Metformin HCl (Glucophage Xr) 1,000 mg DAILYBFRSUP PO Last administered on 18:06; Start 02/02/17 at 18:00 Albuterol/ Ipratropium (Duoneb) 3 ml RTQID NEB Last administered on 02/04/17 08:04; Start 02/03/17 at 08:00 Vancomycin HCl 1 each 1X ONCE MC ; Start 02/04/17 at 14:30; Stop 02/04/17 at 14:31 Vancomycin HCl 2 gm/Sodium Chloride 500 ml @ 250 mls/hr Q12H IV ; Start at 08:24; Stop 02/03/17 at 08:25; Status DC Vancomycin HCl 2 gm/Sodium Chloride 500 ml @ 250 mls/hr Q12H IV Last administered on 02/04/17 02:32; Start 02/03/17 at 15:00 Guaifenesin (Mucinex) 1,200 mg BID PO Last administered on 02/04/17 08:31; Start 02/03/17 at 15:30 Polyethylene Glycol (miraLAX PACKET) 17 gm DAILY PO Last administered on 08:32; Start 02/03/17 at 15:30 Guaifenesin (Robitussin Dm) 10 ml PRN Q4HRS PRN PO COUGH Last administered on 02/03/17 21:05; Start 02/03/17 at 20:00 Active Scripts Active Reported Voltaren (Diclofenac Sodium) 100 Gm Gel..gram. 1 Gm TP BID Capsaicin 42.5 Gm Cream..g. 42.5 Gm TP Lisinopril 40 Mg Tablet 1 Tab PO HS Tylenol (Acetaminophen) 325 Mg Tablet 2 Tab PO PRN Q12HR PRN Chlorthalidone 25 Mg Tablet 2 Tab PO DAILY Paxil (Paroxetine Hcl) 20 Mg Tablet 1 Tab PO HS Metformin Hcl Er (Metformin Hcl) 1,000 Mg Tab.er.24 1,000 Mg PO DAILYBFRSUP Atorvastatin Calcium 10 Mg Tablet 10 Mg PO HS Glipizide 5 Mg Tablet 1 Tab PO DAILY Ibuprofen 400 Mg Tablet 400 Mg PO PRN Q12HR PRN Vitals/I & O Vital Sign - Last 24 Hours 02/03/17 02/03/17 02/03/17 02/03/17 11:37 14:55 15:43 18:55 Temp 98.9 98.0 98.9 98.0 Pulse 99 97 Resp 20 B/P (MAP) 102/43 (62) 135/79 (97) Pulse Ox 94 97 96 98 O2 Delivery Venturi Mask Venturi Mask Venturi Mask Venturi Mask O2 Flow Rate 12.0 12.0 12.0 12.0 02/03/17 02/03/17 02/03/17 02/04/17 19:10 20:09 22:41 02:29 Temp 98.3 97.9 98.3 97.9 Pulse 97 91 Resp 20 18 B/P (MAP) 136/79 (98) 164/76 (105) Pulse Ox 97 96 97 O2 Delivery Venturi Mask Venturi Mask Venturi Mask Venturi Mask O2 Flow Rate 12.0 12.0 12.0 12.0 02/04/17 02/04/17 02/04/17 07:00 08:06 08:31 Temp 98.3 98.3 Pulse 86 86 Resp 20 B/P (MAP) 155/77 (103) 155/77 Pulse Ox 97 97 O2 Delivery Venturi Mask Venturi Mask O2 Flow Rate 12.0 12.0 Intake and Output 02/03/17 02/03/17 02/04/17 15:00 23:00 07:00 Intake Total 1022 ml 420 ml Output Total 250 ml 500 ml 400 ml Balance -250 ml 522 ml 20 ml BRIDGETT WAGNER III DO Feb 04, 2017 11:11
[2017-02-04] MEDS: VANCOMYCIN PER PHARMACY MC PRN ×2 (12:32→14:56)
[2017-02-04 15:00] VITALS: BP 129/76
[2017-02-04] MEDS ORDERED: VANCOMYCIN 2 GM in IV DEXTROSE 5 %-0.2 % NACL 500 ML IV SCH (15:00)
[2017-02-04] MEDS: VANCOMYCIN 1.5 GM in IV DEXTROSE 5 %-0.2 % NACL 500 ML IV SCH ×2 (16:46→22:37)
--- NOTE | 2017-02-04 16:52 | PDOC ---
PULMONARY PROGRESS NOTES Subjective PT STILL SOA Vitals Vital Signs Date Time Temp Pulse Resp B/P (MAP) Pulse Ox O2 Delivery O2 Flow Rate FiO2 02/04/17 15:50 98 Nasal Cannula 4.0 02/04/17 15:00 98.4 94 19 129/76 (93) 98.4 ROS: No Nausea, No Chest Pain, No Abdominal Pain Lungs: Clear Cardiovascular: S1, S2 Abdomen: Soft, Non-tender Neuro Exam: Alert Extremities: Other (EDEMA) Skin: Warm Labs Laboratory Tests Test 02/02/17 17:05 02/02/17 20:56 02/03/17 02:15 02/03/17 07:18 Glucose (Fingerstick) 281 mg/dL (70-99) 262 mg/dL (70-99) 102 mg/dL (70-99) White Blood Count 12.6 x10^3/uL (4.0-11.0) Red Blood Count 4.11 x10^6/uL (4.30-5.70) Hemoglobin 10.5 g/dL (13.0-17.5) Hematocrit 35.1 % (39.0-53.0) Mean Corpuscular Volume 85 fL (79-100) Mean Corpuscular Hemoglobin 26 pg (25-35) Mean Corpuscular Hemoglobin Concent 30 g/dL (31-37) Red Cell Distribution Width 17.6 % (11.5-14.5) Platelet Count 311 x10^3/uL (140-400) Neutrophils (%) (Auto) 78 % (31-73) Lymphocytes (%) (Auto) 10 % (24-48) Monocytes (%) (Auto) 12 % (0-9) Eosinophils (%) (Auto) 0 % (0-3) Basophils (%) (Auto) 0 % (0-3) Neutrophils # (Auto) 9.8 x10^3uL (1.8-7.7) Lymphocytes # (Auto) 1.3 x10^3/uL (1.0-4.8) Monocytes # (Auto) 1.4 x10^3/uL (0.0-1.1) Eosinophils # (Auto) 0.0 x10^3/uL (0.0-0.7) Basophils # (Auto) 0.0 x10^3/uL (0.0-0.2) Sodium Level 144 mmol/L (136-145) Potassium Level 4.3 mmol/L (3.5-5.1) Chloride Level 105 mmol/L (98-107) Carbon Dioxide Level 35 mmol/L (21-32) Anion Gap 4 (6-14) Blood Urea Nitrogen 28 mg/dL (8-26) Creatinine 1.2 mg/dL (0.7-1.3) Estimated GFR (Cockcroft-Gault) 74.7 Glucose Level 129 mg/dL (70-99) Calcium Level 8.4 mg/dL (8.5-10.1) Vancomycin Level Trough 14.2 mcg/mL (10.0-20.0) Vancomycin Last Dose Date Vancomycin Last Dose Time Test 02/03/17 11:21 02/03/17 16:48 02/03/17 21:03 02/04/17 04:40 Glucose (Fingerstick) 141 mg/dL (70-99) 118 mg/dL (70-99) 122 mg/dL (70-99) White Blood Count 8.7 x10^3/uL (4.0-11.0) Red Blood Count 3.91 x10^6/uL (4.30-5.70) Hemoglobin 10.2 g/dL (13.0-17.5) Hematocrit 33.2 % (39.0-53.0) Mean Corpuscular Volume 85 fL (79-100) Mean Corpuscular Hemoglobin 26 pg (25-35) Mean Corpuscular Hemoglobin Concent 31 g/dL (31-37) Red Cell Distribution Width 17.9 % (11.5-14.5) Platelet Count 312 x10^3/uL (140-400) Neutrophils (%) (Auto) 64 % (31-73) Lymphocytes (%) (Auto) 19 % (24-48) Monocytes (%) (Auto) 15 % (0-9) Eosinophils (%) (Auto) 1 % (0-3) Basophils (%) (Auto) 1 % (0-3) Neutrophils # (Auto) 5.6 x10^3uL (1.8-7.7) Lymphocytes # (Auto) 1.7 x10^3/uL (1.0-4.8) Monocytes # (Auto) 1.3 x10^3/uL (0.0-1.1) Eosinophils # (Auto) 0.1 x10^3/uL (0.0-0.7) Basophils # (Auto) 0.0 x10^3/uL (0.0-0.2) Sodium Level 147 mmol/L (136-145) Potassium Level 4.2 mmol/L (3.5-5.1) Chloride Level 108 mmol/L (98-107) Carbon Dioxide Level 36 mmol/L (21-32) Anion Gap 3 (6-14) Blood Urea Nitrogen 19 mg/dL (8-26) Creatinine 0.8 mg/dL (0.7-1.3) Estimated GFR (Cockcroft-Gault) 119.3 Glucose Level 119 mg/dL (70-99) Calcium Level 8.3 mg/dL (8.5-10.1) Test 02/04/17 07:43 02/04/17 12:02 02/04/17 14:27 Glucose (Fingerstick) 157 mg/dL (70-99) 105 mg/dL (70-99) Vancomycin Level Trough 11.6 mcg/mL (10.0-20.0) Vancomycin Last Dose Date 02/04/17 Vancomycin Last Dose Time 0232 Laboratory Tests Test 02/03/17 21:03 02/04/17 04:40 02/04/17 07:43 02/04/17 12:02 Glucose (Fingerstick) 122 mg/dL (70-99) 157 mg/dL (70-99) 105 mg/dL (70-99) White Blood Count 8.7 x10^3/uL (4.0-11.0) Red Blood Count 3.91 x10^6/uL (4.30-5.70) Hemoglobin 10.2 g/dL (13.0-17.5) Hematocrit 33.2 % (39.0-53.0) Mean Corpuscular Volume 85 fL (79-100) Mean Corpuscular Hemoglobin 26 pg (25-35) Mean Corpuscular Hemoglobin Concent 31 g/dL (31-37) Red Cell Distribution Width 17.9 % (11.5-14.5) Platelet Count 312 x10^3/uL (140-400) Neutrophils (%) (Auto) 64 % (31-73) Lymphocytes (%) (Auto) 19 % (24-48) Monocytes (%) (Auto) 15 % (0-9) Eosinophils (%) (Auto) 1 % (0-3) Basophils (%) (Auto) 1 % (0-3) Neutrophils # (Auto) 5.6 x10^3uL (1.8-7.7) Lymphocytes # (Auto) 1.7 x10^3/uL (1.0-4.8) Monocytes # (Auto) 1.3 x10^3/uL (0.0-1.1) Eosinophils # (Auto) 0.1 x10^3/uL (0.0-0.7) Basophils # (Auto) 0.0 x10^3/uL (0.0-0.2) Sodium Level 147 mmol/L (136-145) Potassium Level 4.2 mmol/L (3.5-5.1) Chloride Level 108 mmol/L (98-107) Carbon Dioxide Level 36 mmol/L (21-32) Anion Gap 3 (6-14) Blood Urea Nitrogen 19 mg/dL (8-26) Creatinine 0.8 mg/dL (0.7-1.3) Estimated GFR (Cockcroft-Gault) 119.3 Glucose Level 119 mg/dL (70-99) Calcium Level 8.3 mg/dL (8.5-10.1) Test 02/04/17 14:27 Vancomycin Level Trough 11.6 mcg/mL (10.0-20.0) Vancomycin Last Dose Date 02/04/17 Vancomycin Last Dose Time 0232 Medications Active Scripts Medications Dose Route/Sig Max Daily Dose Days Date Category Voltaren (Diclofenac Sodium) 100 Gm Gel..gram. 1 Gm TP BID 02/01/17 Reported Capsaicin 42.5 Gm Cream..g. 42.5 Gm TP 02/01/17 Reported Lisinopril 40 Mg Tablet 1 Tab PO HS 02/01/17 Reported Tylenol (Acetaminophen) 325 Mg Tablet 2 Tab PO PRN Q12HR PRN 02/01/17 Reported Chlorthalidone 25 Mg Tablet 2 Tab PO DAILY 02/01/17 Reported Paxil (Paroxetine Hcl) 20 Mg Tablet 1 Tab PO HS 02/01/17 Reported Metformin Hcl Er (Metformin Hcl) 1,000 Mg Tab.er.24 1,000 Mg PO DAILYBFRSUP 02/01/17 Reported Atorvastatin Calcium 10 Mg Tablet 10 Mg PO HS 02/01/17 Reported Glipizide 5 Mg Tablet 1 Tab PO DAILY 02/01/17 Reported Ibuprofen 400 Mg Tablet 400 Mg PO PRN Q12HR PRN 02/01/17 Reported Impression . 1. Acute on chronic hypoxemic hypercapnic respiratory failure. 2. Abnormal x-ray compatible with pneumonia. 3. Gram-negative pneumonia, possibly gram-positive. 4. Morbid obesity. 5. Obstructive sleep apnea/obesity hypoventilation syndrome. 6. Elevated troponin levels, suspect non-ST segment elevation myocardial infarction. 7. Protein malnutrition, present upon admission, moderate to severe. 8. History of tobacco dependence, in remission, suspect chronic obstructive pulmonary disease. Impression: 1. Limited study 2. Multifocal areas of consolidation and volume loss suggesting atelectasis. An infiltrative process such as pneumonia possible, particularly in the lower lobe on the left and in the medial right upper lobe. Mild groundglass infiltrate is present in the right upper lobe. 3. 1.4 cm nodular opacity in the superior right lower lobe. Recommend follow-up CT chest with contrast the patient better able to tolerate the exam to better evaluate the nodule. 4. Apparent narrowing of the distal trachea in a configuration which could relate to obstructive lung disease. Plan . NEEDS REPEAT CT IN 2-3 MONTHS TREAT FOR PNEUMONIA FOR NOW OFF BIPAP LOOKS BETTER HOPEFULLY D/C IN AM OR SAT 1. We will continue current Venturi mask. 2. Antibiotics. 3. P.r.n. BiPAP. 4. CT chest, REPORT NOTED 5. Monitor blood sugars closely. CASSIDY VO MD Feb 04, 2017 16:52
[2017-02-04] MEDS: metFORMIN XR 500 MG TAB.ER.24H PO SCH (17:10)
[2017-02-04 19:23] VITALS: BP 123/69
[2017-02-04] MEDS: ATORVASTATIN CALCIUM 10 MG TABLET. PO SCH (20:45)
[2017-02-04] MEDS: KETOROLAC 30 MG/ML INJ. IV PRN (20:45)
[2017-02-04] MEDS: guaiFENesin DM 200MG/20MG 10 ML SYRUP PO PRN (20:45)
[2017-02-04] MEDS: PARoxetine 20 MG TABLET PO SCH (20:45)
[2017-02-04 22:35] VITALS: BP 152/83
[2017-02-05] MEDS: PIPERACILLIN/TAZO IV Push 4.5 GM VIAL. IVP SCH ×4 (00:44→17:46)
[2017-02-05 03:18] VITALS: BP 153/85
[2017-02-05 04:23] LABS: BASO % 0 % (0-3); EOS % 2 % (0-3); HEMATOCRIT 30.5 % (39.0-53.0); HEMOGLOBIN 9.6 g/dL (13.0-17.5); LYMPH # 1.4 x10^3/uL (1.0-4.8); LYMPH % 16 % (24-48); MEAN CORPUSCULAR HEMOGLOBIN 26 pg (25-35); MEAN CORPUSCULAR HGB CONC 31 g/dL (31-37); MEAN CORPUSCULAR VOLUME 84 fL (79-100); MONO % 13 % (0-9); NEUT % 69 % (31-73); PLATELET COUNT 311 x10^3/uL (140-400); RED BLOOD COUNT 3.64 x10^6/uL (4.30-5.70); RED CELL DISTRIBUTION WIDTH 17.7 % (11.5-14.5); WHITE BLOOD COUNT 8.7 x10^3/uL (4.0-11.0)
[2017-02-05 04:37] LABS: CALCIUM 8.1 mg/dL (8.5-10.1); CREATININE 0.8 mg/dL (0.7-1.3); GFR 119.3; POTASSIUM 3.8 mmol/L (3.5-5.1)
[2017-02-05] MEDS: VANCOMYCIN 1.5 GM in IV DEXTROSE 5 %-0.2 % NACL 500 ML IV SCH ×2 (06:28→15:41)
[2017-02-05 07:00] VITALS: BP 163/75
[2017-02-05] MEDS: IPRATRPIUM/ALBUTEROL 0.5/2.5MG 3 ML NEBU. NEB SCH ×3 (07:55→21:17)
[2017-02-05] MEDS: POLYETHYLENE GLYCOL 3350 17 GM PACKET. PO SCH (08:55)
[2017-02-05] MEDS: ASPIRIN ENTERIC COATED 81 MG TABLET.DR. PO SCH (08:55)
[2017-02-05] MEDS: glipiZIDE 5 MG TABLET PO SCH (08:55)
[2017-02-05] MEDS: DICLOFENAC SODIUM 1% TOPICAL GEL 100GM TUBE. TP SCH ×2 (08:55→21:05)
[2017-02-05] MEDS: LACTOBACILLUS RHAMNOSUS GG 1 CAPSULE. PO SCH ×2 (08:55→21:02)
[2017-02-05] MEDS: LISINOPRIL 10 MG TABLET PO SCH (08:56)
[2017-02-05] MEDS: VANCOMYCIN PER PHARMACY MC PRN (09:09)
[2017-02-05 10:24] VITALS: BP 163/87
--- NOTE | 2017-02-05 11:57 | PDOC ---
PROGRESS NOTES Chief Complaint Chief Complaint Shortness of Breath CHF Diabetes-Type II Hypertension History of Present Illness History of Present Illness Pt sitting up in chair on nasal canula 4L AAO x3 Mild Distress, Admits Pleuritic CP Awaiting Input from Pulmonology Vitals Vitals Vital Signs Date Time Temp Pulse Resp B/P (MAP) Pulse Ox O2 Delivery O2 Flow Rate FiO2 02/05/17 10:24 98.4 91 22 163/87 (112) 95 Nasal Cannula 4.0 98.4 Physical Exam General: Alert, Oriented X3, Cooperative, mild distress Heart: Regular rate, Normal S1, Normal S2 Lungs: Wheezing, Crackles (left), Other (Diminished airflow) Abdomen: Normal bowel sounds, Soft, No masses Extremities: No clubbing, No cyanosis Skin: No rashes, No breakdown Labs LABS Laboratory Tests Test 02/04/17 12:02 02/04/17 14:27 02/04/17 16:53 02/04/17 20:37 Glucose (Fingerstick) 105 mg/dL (70-99) 240 mg/dL (70-99) 115 mg/dL (70-99) Vancomycin Level Trough 11.6 mcg/mL (10.0-20.0) Vancomycin Last Dose Date 02/04/17 Vancomycin Last Dose Time 0232 Test 02/05/17 04:15 02/05/17 07:38 02/05/17 11:15 White Blood Count 8.7 x10^3/uL (4.0-11.0) Red Blood Count 3.64 x10^6/uL (4.30-5.70) Hemoglobin 9.6 g/dL (13.0-17.5) Hematocrit 30.5 % (39.0-53.0) Mean Corpuscular Volume 84 fL (79-100) Mean Corpuscular Hemoglobin 26 pg (25-35) Mean Corpuscular Hemoglobin Concent 31 g/dL (31-37) Red Cell Distribution Width 17.7 % (11.5-14.5) Platelet Count 311 x10^3/uL (140-400) Neutrophils (%) (Auto) 69 % (31-73) Lymphocytes (%) (Auto) 16 % (24-48) Monocytes (%) (Auto) 13 % (0-9) Eosinophils (%) (Auto) 2 % (0-3) Basophils (%) (Auto) 0 % (0-3) Neutrophils # (Auto) 6.0 x10^3uL (1.8-7.7) Lymphocytes # (Auto) 1.4 x10^3/uL (1.0-4.8) Monocytes # (Auto) 1.1 x10^3/uL (0.0-1.1) Eosinophils # (Auto) 0.2 x10^3/uL (0.0-0.7) Basophils # (Auto) 0.0 x10^3/uL (0.0-0.2) Sodium Level 144 mmol/L (136-145) Potassium Level 3.8 mmol/L (3.5-5.1) Chloride Level 106 mmol/L (98-107) Carbon Dioxide Level 35 mmol/L (21-32) Anion Gap 3 (6-14) Blood Urea Nitrogen 14 mg/dL (8-26) Creatinine 0.8 mg/dL (0.7-1.3) Estimated GFR (Cockcroft-Gault) 119.3 Glucose Level 136 mg/dL (70-99) Calcium Level 8.1 mg/dL (8.5-10.1) Glucose (Fingerstick) 145 mg/dL (70-99) 135 mg/dL (70-99) Review of Systems Review of Systems General: No Fever, Hunger, Chills CV: No palpitations, dizziness Pulm: Admits Pleuritic Chest Pain, Wheezes Assessment and Plan Assessmemt and Plan Problems Acute respiratory failure Fever Pneumonia Sepsis Shortness of Breath CHF Diabetes-Type II Hypertension Plan: Probable DC awaiting Pulmonology Input Continue Antibiotics Continue Breathing Treatments Continue Toradol PRN(Pleurisy) Continue Cardiac Diet Continue Home Meds Continue PT/OT Recheck Labs Problems: Comment Review of Relevant I have reviewed the following items jenny (where applicable) has been applied. Labs Laboratory Tests Test 02/03/17 16:48 02/03/17 21:03 02/04/17 04:40 02/04/17 07:43 Glucose (Fingerstick) 118 mg/dL (70-99) 122 mg/dL (70-99) 157 mg/dL (70-99) White Blood Count 8.7 x10^3/uL (4.0-11.0) Red Blood Count 3.91 x10^6/uL (4.30-5.70) Hemoglobin 10.2 g/dL (13.0-17.5) Hematocrit 33.2 % (39.0-53.0) Mean Corpuscular Volume 85 fL (79-100) Mean Corpuscular Hemoglobin 26 pg (25-35) Mean Corpuscular Hemoglobin Concent 31 g/dL (31-37) Red Cell Distribution Width 17.9 % (11.5-14.5) Platelet Count 312 x10^3/uL (140-400) Neutrophils (%) (Auto) 64 % (31-73) Lymphocytes (%) (Auto) 19 % (24-48) Monocytes (%) (Auto) 15 % (0-9) Eosinophils (%) (Auto) 1 % (0-3) Basophils (%) (Auto) 1 % (0-3) Neutrophils # (Auto) 5.6 x10^3uL (1.8-7.7) Lymphocytes # (Auto) 1.7 x10^3/uL (1.0-4.8) Monocytes # (Auto) 1.3 x10^3/uL (0.0-1.1) Eosinophils # (Auto) 0.1 x10^3/uL (0.0-0.7) Basophils # (Auto) 0.0 x10^3/uL (0.0-0.2) Sodium Level 147 mmol/L (136-145) Potassium Level 4.2 mmol/L (3.5-5.1) Chloride Level 108 mmol/L (98-107) Carbon Dioxide Level 36 mmol/L (21-32) Anion Gap 3 (6-14) Blood Urea Nitrogen 19 mg/dL (8-26) Creatinine 0.8 mg/dL (0.7-1.3) Estimated GFR (Cockcroft-Gault) 119.3 Glucose Level 119 mg/dL (70-99) Calcium Level 8.3 mg/dL (8.5-10.1) Test 02/04/17 12:02 02/04/17 14:27 02/04/17 16:53 02/04/17 20:37 Glucose (Fingerstick) 105 mg/dL (70-99) 240 mg/dL (70-99) 115 mg/dL (70-99) Vancomycin Level Trough 11.6 mcg/mL (10.0-20.0) Vancomycin Last Dose Date 02/04/17 Vancomycin Last Dose Time 0232 Test 02/05/17 04:15 02/05/17 07:38 02/05/17 11:15 White Blood Count 8.7 x10^3/uL (4.0-11.0) Red Blood Count 3.64 x10^6/uL (4.30-5.70) Hemoglobin 9.6 g/dL (13.0-17.5) Hematocrit 30.5 % (39.0-53.0) Mean Corpuscular Volume 84 fL (79-100) Mean Corpuscular Hemoglobin 26 pg (25-35) Mean Corpuscular Hemoglobin Concent 31 g/dL (31-37) Red Cell Distribution Width 17.7 % (11.5-14.5) Platelet Count 311 x10^3/uL (140-400) Neutrophils (%) (Auto) 69 % (31-73) Lymphocytes (%) (Auto) 16 % (24-48) Monocytes (%) (Auto) 13 % (0-9) Eosinophils (%) (Auto) 2 % (0-3) Basophils (%) (Auto) 0 % (0-3) Neutrophils # (Auto) 6.0 x10^3uL (1.8-7.7) Lymphocytes # (Auto) 1.4 x10^3/uL (1.0-4.8) Monocytes # (Auto) 1.1 x10^3/uL (0.0-1.1) Eosinophils # (Auto) 0.2 x10^3/uL (0.0-0.7) Basophils # (Auto) 0.0 x10^3/uL (0.0-0.2) Sodium Level 144 mmol/L (136-145) Potassium Level 3.8 mmol/L (3.5-5.1) Chloride Level 106 mmol/L (98-107) Carbon Dioxide Level 35 mmol/L (21-32) Anion Gap 3 (6-14) Blood Urea Nitrogen 14 mg/dL (8-26) Creatinine 0.8 mg/dL (0.7-1.3) Estimated GFR (Cockcroft-Gault) 119.3 Glucose Level 136 mg/dL (70-99) Calcium Level 8.1 mg/dL (8.5-10.1) Glucose (Fingerstick) 145 mg/dL (70-99) 135 mg/dL (70-99) Laboratory Tests Test 02/04/17 12:02 02/04/17 14:27 02/04/17 16:53 02/04/17 20:37 Glucose (Fingerstick) 105 mg/dL (70-99) 240 mg/dL (70-99) 115 mg/dL (70-99) Vancomycin Level Trough 11.6 mcg/mL (10.0-20.0) Vancomycin Last Dose Date 02/04/17 Vancomycin Last Dose Time 0232 Test 02/05/17 04:15 02/05/17 07:38 02/05/17 11:15 White Blood Count 8.7 x10^3/uL (4.0-11.0) Red Blood Count 3.64 x10^6/uL (4.30-5.70) Hemoglobin 9.6 g/dL (13.0-17.5) Hematocrit 30.5 % (39.0-53.0) Mean Corpuscular Volume 84 fL (79-100) Mean Corpuscular Hemoglobin 26 pg (25-35) Mean Corpuscular Hemoglobin Concent 31 g/dL (31-37) Red Cell Distribution Width 17.7 % (11.5-14.5) Platelet Count 311 x10^3/uL (140-400) Neutrophils (%) (Auto) 69 % (31-73) Lymphocytes (%) (Auto) 16 % (24-48) Monocytes (%) (Auto) 13 % (0-9) Eosinophils (%) (Auto) 2 % (0-3) Basophils (%) (Auto) 0 % (0-3) Neutrophils # (Auto) 6.0 x10^3uL (1.8-7.7) Lymphocytes # (Auto) 1.4 x10^3/uL (1.0-4.8) Monocytes # (Auto) 1.1 x10^3/uL (0.0-1.1) Eosinophils # (Auto) 0.2 x10^3/uL (0.0-0.7) Basophils # (Auto) 0.0 x10^3/uL (0.0-0.2) Sodium Level 144 mmol/L (136-145) Potassium Level 3.8 mmol/L (3.5-5.1) Chloride Level 106 mmol/L (98-107) Carbon Dioxide Level 35 mmol/L (21-32) Anion Gap 3 (6-14) Blood Urea Nitrogen 14 mg/dL (8-26) Creatinine 0.8 mg/dL (0.7-1.3) Estimated GFR (Cockcroft-Gault) 119.3 Glucose Level 136 mg/dL (70-99) Calcium Level 8.1 mg/dL (8.5-10.1) Glucose (Fingerstick) 145 mg/dL (70-99) 135 mg/dL (70-99) Microbiology 02/01/17 Blood Culture - Preliminary, Resulted NO GROWTH AFTER 3 DAYS 02/02/17 - Final, Complete 02/02/17 - Final, Complete 02/02/17 - Final, Complete 02/02/17 - Final, Complete 02/02/17 Gram Stain Evaluation - Final, Complete 02/02/17 Sputum Culture - Final, Complete 02/02/17 Sputum Result 1 - Final, Complete Medications Current Medications Acetaminophen (Tylenol) 1,000 mg 1X ONCE PO Last administered on 02/01/17 13 :49; Start 02/01/17 at 12:45; Stop 02/01/17 at 13:19; Status DC Sodium Chloride 1,000 ml @ 200 mls/hr 1X ONCE IV Last administered on 13:49; Start 02/01/17 at 12:45; Stop 02/01/17 at 17:44; Status DC Piperacillin Sod/ Tazobactam Sod (Zosyn Per Pharmacy) 1 each PRN DAILY PRN MC SEE COMMENTS; Start 02/01/17 at 13:00; Stop 02/03/17 at 13:45; Status DC Vancomycin HCl (Vanco Per Pharmacy) 1 each PRN DAILY PRN MC SEE COMMENTS Last administered on 02/05/17 09:09; Start 02/01/17 at 13:00 Levofloxacin/ Dextrose (Levaquin Per Pharmacy) 1 each PRN DAILY PRN MC SEE COMMENTS; Start 02/01/17 at 13:00; Stop 02/03/17 at 13:46; Status DC Albuterol/ Ipratropium (Duoneb) 3 ml 1X ONCE NEB Last administered on 14:30; Start 02/01/17 at 13:15; Stop 02/01/17 at 13:20; Status DC Albuterol/ Ipratropium (Duoneb) 3 ml RTQID NEB Last administered on 02/02/17 11:18; Start 02/01/17 at 16:00; Stop 02/02/17 at 15:59; Status DC Albuterol Sulfate (Ventolin Neb Soln) 10 mg 1X ONCE CONT NEB Last administered on 02/01/17 14:20; Start 02/01/17 at 13:15; Stop 02/01/17 at 13 :19; Status DC Levofloxacin/ Dextrose 100 ml @ 100 mls/hr 1X ONCE IV Last administered on 13:49; Start 02/01/17 at 13:30; Stop 02/01/17 at 14:29; Status DC Piperacillin Sod/ Tazobactam Sod (Zosyn) 4.5 gm 1X ONCE IVP Last administered on 02/01/17 14:43; Start 02/01/17 at 13:30; Stop 02/01/17 at 13:31; Status DC Vancomycin HCl 2 gm/Dextrose 500 ml @ 250 mls/hr 1X ONCE IV Last administered on 02/01/17 14:43; Start 02/01/17 at 14:00; Stop 02/01/17 at 15 :59; Status DC Levofloxacin/ Dextrose 150 ml @ 100 mls/hr Q24H IV Last administered on 14:50; Start 02/02/17 at 15:00 Piperacillin Sod/ Tazobactam Sod (Zosyn) 4.5 gm Q6HRS IVP Last administered on 02/05/17 05:47; Start 02/01/17 at 19:00 Aspirin (Ecotrin) 81 mg DAILYWBKFT PO Last administered on 02/05/17 08:55; Start 02/01/17 at 16:00 Vancomycin HCl 2 gm/Dextrose 500 ml @ 250 mls/hr Q8H IV ; Start 02/01/17 at 23 :00; Stop 02/01/17 at 23:00; Status DC Vancomycin HCl 1 each 1X ONCE MC Last administered on 02/03/17 02:30; Start 02/03/17 at 02:30; Stop 02/03/17 at 02:31; Status DC Vancomycin HCl 2 gm/Dextrose 500 ml @ 250 mls/hr Q12H IV Last administered on 02/03/17 03:19; Start 02/02/17 at 03:00; Stop 02/03/17 at 08:24; Status DC Pneumococcal Polyvalent Vaccine (Pneumovax 23) 0.5 ml ONCE ONCE VAX IM Last administered on 02/02/17 14:24; Start 02/02/17 at 09:00; Stop 02/02/17 at 09 :01; Status DC Morphine Sulfate 2 mg PRN Q2HR PRN IV PAIN Last administered on 02/02/17 16: 48; Start 02/02/17 at 09:00 Ketorolac Tromethamine (Toradol) 30 mg PRN Q6HRS PRN IV PAIN Last administered on 02/04/17 20:45; Start 02/02/17 at 09:00; Stop 02/07/17 at 08:59 Aspirin (Ecotrin) 81 mg DAILYWBKFT PO ; Start 02/03/17 at 08:00; Status Cancel Atorvastatin Calcium (Lipitor) 10 mg QHS PO Last administered on 02/04/17 20: 45; Start 02/02/17 at 21:00 Lisinopril (Prinivil) 10 mg DAILY PO Last administered on 02/05/17 08:56; Start 02/02/17 at 12:00 Acetaminophen (Tylenol) 650 mg PRN Q12HR PRN PO PAIN; Start 02/02/17 at 13:45 Atorvastatin Calcium (Lipitor) 10 mg HS PO ; Start 02/02/17 at 21:00; Status UNV Diclofenac Sodium (Voltaren) 1 rtaci BID TP Last administered on 02/05/17 08:55 ; Start 02/02/17 at 21:00 Glipizide (Glucotrol) 5 mg DAILYWBKFT PO Last administered on 02/05/17 08:55 ; Start 02/03/17 at 08:00 Ibuprofen (Motrin) 400 mg PRN Q12HR PRN PO INFLAMMATION; Start 02/02/17 at 13: 45; Status Cancel Paroxetine HCl (Paxil) 20 mg HS PO Last administered on 02/04/17 20:45; Start 02/02/17 at 21:00 Metformin HCl (Glucophage) 1,000 mg DAILYBFRSUP PO Last administered on 17:48; Start 02/02/17 at 17:00; Stop 02/02/17 at 17:55; Status DC Lactobacillus Rhamnosus (Culturelle) 1 cap BID PO Last administered on 08:55; Start 02/02/17 at 21:00 Metformin HCl (Glucophage Xr) 1,000 mg DAILYBFRSUP PO Last administered on 17:10; Start 02/02/17 at 18:00 Albuterol/ Ipratropium (Duoneb) 3 ml RTQID NEB Last administered on 02/04/17 19:23; Start 02/03/17 at 08:00 Vancomycin HCl 1 each 1X ONCE MC ; Start 02/04/17 at 14:30; Stop 02/04/17 at 14:31; Status DC Vancomycin HCl 2 gm/Sodium Chloride 500 ml @ 250 mls/hr Q12H IV ; Start at 08:24; Stop 02/03/17 at 08:25; Status DC Vancomycin HCl 2 gm/Sodium Chloride 500 ml @ 250 mls/hr Q12H IV Last administered on 02/04/17 02:32; Start 02/03/17 at 15:00; Stop 02/04/17 at 13 :22; Status DC Guaifenesin (Mucinex) 1,200 mg BID PO Last administered on 02/05/17 08:55; Start 02/03/17 at 15:30 Polyethylene Glycol (miraLAX PACKET) 17 gm DAILY PO Last administered on 08:55; Start 02/03/17 at 15:30 Guaifenesin (Robitussin Dm) 10 ml PRN Q4HRS PRN PO COUGH Last administered on 02/04/17 20:45; Start 02/03/17 at 20:00 Vancomycin HCl 2 gm/Dextrose/ Sodium Chloride 500 ml @ 250 mls/hr Q12H IV ; Start 02/04/17 at 15:00; Status Cancel Vancomycin HCl 1.5 gm/Dextrose/ Sodium Chloride 500 ml @ 250 mls/hr Q8H IV Last administered on 02/05/17 06:28; Start 02/04/17 at 15:00 Active Scripts Active Reported Voltaren (Diclofenac Sodium) 100 Gm Gel..gram. 1 Gm TP BID Capsaicin 42.5 Gm Cream..g. 42.5 Gm TP Lisinopril 40 Mg Tablet 1 Tab PO HS Tylenol (Acetaminophen) 325 Mg Tablet 2 Tab PO PRN Q12HR PRN Chlorthalidone 25 Mg Tablet 2 Tab PO DAILY Paxil (Paroxetine Hcl) 20 Mg Tablet 1 Tab PO HS Metformin Hcl Er (Metformin Hcl) 1,000 Mg Tab.er.24 1,000 Mg PO DAILYBFRSUP Atorvastatin Calcium 10 Mg Tablet 10 Mg PO HS Glipizide 5 Mg Tablet 1 Tab PO DAILY Ibuprofen 400 Mg Tablet 400 Mg PO PRN Q12HR PRN Vitals/I & O Vital Sign - Last 24 Hours 02/04/17 02/04/17 02/04/17 02/04/17 12:05 15:00 15:50 19:20 Temp 98.4 98.4 Pulse 94 Resp 19 B/P (MAP) 129/76 (93) Pulse Ox 97 95 98 O2 Delivery Nasal Cannula Nasal Cannula Nasal Cannula Venturi Mask O2 Flow Rate 4.5 5.0 4.0 3.0 02/04/17 02/04/17 02/04/17 02/05/17 19:23 19:25 22:35 03:18 Temp 97.5 97.8 98.4 97.5 97.8 98.4 Pulse 80 99 95 Resp 20 20 18 B/P (MAP) 123/69 (87) 152/83 (106) 153/85 (107) Pulse Ox 100 95 94 90 O2 Delivery Nasal Cannula Nasal Cannula Nasal Cannula Nasal Cannula O2 Flow Rate 4.0 3.0 3.0 4.0 02/05/17 02/05/17 02/05/17 02/05/17 07:00 08:10 08:56 10:24 Temp 98.2 98.4 98.2 98.4 Pulse 86 86 91 Resp 20 22 B/P (MAP) 163/75 (104) 163/75 163/87 (112) Pulse Ox 97 95 O2 Delivery Nasal Cannula Venturi Mask Nasal Cannula O2 Flow Rate 4.0 3.0 4.0 Intake and Output 02/04/17 02/04/17 02/05/17 14:59 22:59 06:59 Intake Total 900 ml 240 ml Output Total 650 ml 500 ml Balance 250 ml -260 ml BRIDGETT WAGNER III DO Feb 05, 2017 11:57
[2017-02-05 14:57] VITALS: BP 156/80
[2017-02-05] MEDS: metFORMIN XR 500 MG TAB.ER.24H PO SCH (17:46)
--- NOTE | 2017-02-05 18:06 | PDOC ---
PULMONARY PROGRESS NOTES Subjective PT STILL SOA Vitals Vital Signs Date Time Temp Pulse Resp B/P (MAP) Pulse Ox O2 Delivery O2 Flow Rate FiO2 02/05/17 16:32 95 Nasal Cannula 3.0 02/05/17 14:57 98.2 92 20 156/80 (105) 98.2 ROS: No Nausea, No Chest Pain, No Abdominal Pain Lungs: Wheezing, Crackles (left), Other (Diminished airflow) Cardiovascular: S1, S2 Abdomen: Soft, Non-tender Neuro Exam: Alert Extremities: Other (EDEMA) Skin: Warm Labs Laboratory Tests Test 02/03/17 21:03 02/04/17 04:40 02/04/17 07:43 02/04/17 12:02 Glucose (Fingerstick) 122 mg/dL (70-99) 157 mg/dL (70-99) 105 mg/dL (70-99) White Blood Count 8.7 x10^3/uL (4.0-11.0) Red Blood Count 3.91 x10^6/uL (4.30-5.70) Hemoglobin 10.2 g/dL (13.0-17.5) Hematocrit 33.2 % (39.0-53.0) Mean Corpuscular Volume 85 fL (79-100) Mean Corpuscular Hemoglobin 26 pg (25-35) Mean Corpuscular Hemoglobin Concent 31 g/dL (31-37) Red Cell Distribution Width 17.9 % (11.5-14.5) Platelet Count 312 x10^3/uL (140-400) Neutrophils (%) (Auto) 64 % (31-73) Lymphocytes (%) (Auto) 19 % (24-48) Monocytes (%) (Auto) 15 % (0-9) Eosinophils (%) (Auto) 1 % (0-3) Basophils (%) (Auto) 1 % (0-3) Neutrophils # (Auto) 5.6 x10^3uL (1.8-7.7) Lymphocytes # (Auto) 1.7 x10^3/uL (1.0-4.8) Monocytes # (Auto) 1.3 x10^3/uL (0.0-1.1) Eosinophils # (Auto) 0.1 x10^3/uL (0.0-0.7) Basophils # (Auto) 0.0 x10^3/uL (0.0-0.2) Sodium Level 147 mmol/L (136-145) Potassium Level 4.2 mmol/L (3.5-5.1) Chloride Level 108 mmol/L (98-107) Carbon Dioxide Level 36 mmol/L (21-32) Anion Gap 3 (6-14) Blood Urea Nitrogen 19 mg/dL (8-26) Creatinine 0.8 mg/dL (0.7-1.3) Estimated GFR (Cockcroft-Gault) 119.3 Glucose Level 119 mg/dL (70-99) Calcium Level 8.3 mg/dL (8.5-10.1) Test 02/04/17 14:27 02/04/17 16:53 02/04/17 20:37 02/05/17 04:15 Vancomycin Level Trough 11.6 mcg/mL (10.0-20.0) Vancomycin Last Dose Date 02/04/17 Vancomycin Last Dose Time 023 Glucose (Fingerstick) 240 mg/dL (70-99) 115 mg/dL (70-99) White Blood Count 8.7 x10^3/uL (4.0-11.0) Red Blood Count 3.64 x10^6/uL (4.30-5.70) Hemoglobin 9.6 g/dL (13.0-17.5) Hematocrit 30.5 % (39.0-53.0) Mean Corpuscular Volume 84 fL (79-100) Mean Corpuscular Hemoglobin 26 pg (25-35) Mean Corpuscular Hemoglobin Concent 31 g/dL (31-37) Red Cell Distribution Width 17.7 % (11.5-14.5) Platelet Count 311 x10^3/uL (140-400) Neutrophils (%) (Auto) 69 % (31-73) Lymphocytes (%) (Auto) 16 % (24-48) Monocytes (%) (Auto) 13 % (0-9) Eosinophils (%) (Auto) 2 % (0-3) Basophils (%) (Auto) 0 % (0-3) Neutrophils # (Auto) 6.0 x10^3uL (1.8-7.7) Lymphocytes # (Auto) 1.4 x10^3/uL (1.0-4.8) Monocytes # (Auto) 1.1 x10^3/uL (0.0-1.1) Eosinophils # (Auto) 0.2 x10^3/uL (0.0-0.7) Basophils # (Auto) 0.0 x10^3/uL (0.0-0.2) Sodium Level 144 mmol/L (136-145) Potassium Level 3.8 mmol/L (3.5-5.1) Chloride Level 106 mmol/L (98-107) Carbon Dioxide Level 35 mmol/L (21-32) Anion Gap 3 (6-14) Blood Urea Nitrogen 14 mg/dL (8-26) Creatinine 0.8 mg/dL (0.7-1.3) Estimated GFR (Cockcroft-Gault) 119.3 Glucose Level 136 mg/dL (70-99) Calcium Level 8.1 mg/dL (8.5-10.1) Test 02/05/17 07:38 02/05/17 11:15 02/05/17 16:11 Glucose (Fingerstick) 145 mg/dL (70-99) 135 mg/dL (70-99) 117 mg/dL (70-99) Laboratory Tests Test 02/04/17 20:37 02/05/17 04:15 02/05/17 07:38 02/05/17 11:15 Glucose (Fingerstick) 115 mg/dL (70-99) 145 mg/dL (70-99) 135 mg/dL (70-99) White Blood Count 8.7 x10^3/uL (4.0-11.0) Red Blood Count 3.64 x10^6/uL (4.30-5.70) Hemoglobin 9.6 g/dL (13.0-17.5) Hematocrit 30.5 % (39.0-53.0) Mean Corpuscular Volume 84 fL (79-100) Mean Corpuscular Hemoglobin 26 pg (25-35) Mean Corpuscular Hemoglobin Concent 31 g/dL (31-37) Red Cell Distribution Width 17.7 % (11.5-14.5) Platelet Count 311 x10^3/uL (140-400) Neutrophils (%) (Auto) 69 % (31-73) Lymphocytes (%) (Auto) 16 % (24-48) Monocytes (%) (Auto) 13 % (0-9) Eosinophils (%) (Auto) 2 % (0-3) Basophils (%) (Auto) 0 % (0-3) Neutrophils # (Auto) 6.0 x10^3uL (1.8-7.7) Lymphocytes # (Auto) 1.4 x10^3/uL (1.0-4.8) Monocytes # (Auto) 1.1 x10^3/uL (0.0-1.1) Eosinophils # (Auto) 0.2 x10^3/uL (0.0-0.7) Basophils # (Auto) 0.0 x10^3/uL (0.0-0.2) Sodium Level 144 mmol/L (136-145) Potassium Level 3.8 mmol/L (3.5-5.1) Chloride Level 106 mmol/L (98-107) Carbon Dioxide Level 35 mmol/L (21-32) Anion Gap 3 (6-14) Blood Urea Nitrogen 14 mg/dL (8-26) Creatinine 0.8 mg/dL (0.7-1.3) Estimated GFR (Cockcroft-Gault) 119.3 Glucose Level 136 mg/dL (70-99) Calcium Level 8.1 mg/dL (8.5-10.1) Test 02/05/17 16:11 Glucose (Fingerstick) 117 mg/dL (70-99) Medications Active Scripts Medications Dose Route/Sig Max Daily Dose Days Date Category Voltaren (Diclofenac Sodium) 100 Gm Gel..gram. 1 Gm TP BID 02/01/17 Reported Capsaicin 42.5 Gm Cream..g. 42.5 Gm TP 02/01/17 Reported Lisinopril 40 Mg Tablet 1 Tab PO HS 02/01/17 Reported Tylenol (Acetaminophen) 325 Mg Tablet 2 Tab PO PRN Q12HR PRN 02/01/17 Reported Chlorthalidone 25 Mg Tablet 2 Tab PO DAILY 02/01/17 Reported Paxil (Paroxetine Hcl) 20 Mg Tablet 1 Tab PO HS 02/01/17 Reported Metformin Hcl Er (Metformin Hcl) 1,000 Mg Tab.er.24 1,000 Mg PO DAILYBFRSUP 02/01/17 Reported Atorvastatin Calcium 10 Mg Tablet 10 Mg PO HS 02/01/17 Reported Glipizide 5 Mg Tablet 1 Tab PO DAILY 02/01/17 Reported Ibuprofen 400 Mg Tablet 400 Mg PO PRN Q12HR PRN 02/01/17 Reported Impression . 1. Acute on chronic hypoxemic hypercapnic respiratory failure. 2. Abnormal x-ray compatible with pneumonia. 3. Gram-negative pneumonia, possibly gram-positive. 4. Morbid obesity. 5. Obstructive sleep apnea/obesity hypoventilation syndrome. 6. Elevated troponin levels, suspect non-ST segment elevation myocardial infarction. 7. Protein malnutrition, present upon admission, moderate to severe. 8. History of tobacco dependence, in remission, suspect chronic obstructive pulmonary disease. Impression: 1. Limited study 2. Multifocal areas of consolidation and volume loss suggesting atelectasis. An infiltrative process such as pneumonia possible, particularly in the lower lobe on the left and in the medial right upper lobe. Mild groundglass infiltrate is present in the right upper lobe. 3. 1.4 cm nodular opacity in the superior right lower lobe. Recommend follow-up CT chest with contrast the patient better able to tolerate the exam to better evaluate the nodule. 4. Apparent narrowing of the distal trachea in a configuration which could relate to obstructive lung disease. Plan . NEEDS REPEAT CT IN 2-3 MONTHS TREAT FOR PNEUMONIA FOR NOW OFF BIPAP LOOKS BETTER ORAL ANTIBX D/C IN AM CASSIDY VO MD Feb 05, 2017 18:06
[2017-02-05 19:30] VITALS: BP 161/67
[2017-02-05] MEDS: ATORVASTATIN CALCIUM 10 MG TABLET. PO SCH (21:02)
[2017-02-05] MEDS: AMOXICILLIN/K CLAV 875/125MG TABLET. PO SCH (21:02)
[2017-02-05] MEDS: PARoxetine 20 MG TABLET PO SCH (21:02)
[2017-02-05 23:35] VITALS: BP 183/94
[2017-02-05] MEDS ORDERED: hydrALAZINE 20 MG/ML VIAL. IVP PRN (23:45)
[2017-02-06 03:35] VITALS: BP 150/75
[2017-02-06 05:18] LABS: BASO # 0.1 x10^3/uL (0.0-0.2); BASO % 1 % (0-3); EOS % 4 % (0-3); HEMATOCRIT 30.2 % (39.0-53.0); HEMOGLOBIN 9.3 g/dL (13.0-17.5); LYMPH # 1.1 x10^3/uL (1.0-4.8); LYMPH % 11 % (24-48); MEAN CORPUSCULAR HEMOGLOBIN 26 pg (25-35); MEAN CORPUSCULAR HGB CONC 31 g/dL (31-37); MEAN CORPUSCULAR VOLUME 85 fL (79-100); MONO % 9 % (0-9); NEUT % 75 % (31-73); PLATELET COUNT 312 x10^3/uL (140-400); RED BLOOD COUNT 3.57 x10^6/uL (4.30-5.70); RED CELL DISTRIBUTION WIDTH 17.6 % (11.5-14.5)
[2017-02-06 05:48] LABS: CALCIUM 8.3 mg/dL (8.5-10.1); CREATININE 0.6 mg/dL (0.7-1.3); GFR 166.3; POTASSIUM 3.7 mmol/L (3.5-5.1)
[2017-02-06 07:00] VITALS: BP 168/79
[2017-02-06 08:26] LABS: % BASOS 1 % (0-3); % EOS 8 % (0-5); PLT ESTIMATE ADEQUATE (ADEQUATE)
[2017-02-06 08:27] LABS: POLYCHROMASIA SLIGHT; SCHISTOCYTES OCC
[2017-02-06 08:28] LABS: ANISOCYTOSIS PRESENT
[2017-02-06] MEDS: IPRATRPIUM/ALBUTEROL 0.5/2.5MG 3 ML NEBU. NEB SCH ×2 (08:45→11:46)
[2017-02-06] MEDS: POLYETHYLENE GLYCOL 3350 17 GM PACKET. PO SCH (08:56)
[2017-02-06] MEDS: glipiZIDE 5 MG TABLET PO SCH (08:56)
[2017-02-06] MEDS: LACTOBACILLUS RHAMNOSUS GG 1 CAPSULE. PO SCH (08:56)
[2017-02-06] MEDS: AMOXICILLIN/K CLAV 875/125MG TABLET. PO SCH (08:56)
[2017-02-06] MEDS: ASPIRIN ENTERIC COATED 81 MG TABLET.DR. PO SCH (08:56)
[2017-02-06] MEDS: LISINOPRIL 10 MG TABLET PO SCH (08:56)
[2017-02-06] MEDS: DICLOFENAC SODIUM 1% TOPICAL GEL 100GM TUBE. TP SCH (08:57)
[2017-02-06 11:00] VITALS: BP 153/69
--- NOTE | 2017-02-06 12:17 | PDOC ---
PROGRESS NOTES Chief Complaint Chief Complaint Shortness of Breath CHF Diabetes-Type II Hypertension History of Present Illness History of Present Illness Pt reports feeling "good" today. He slept well, had no acute overnight events, has a good appetite, had a bowel movement this morning and also urinated this morning. Vitals Vitals Vital Signs Date Time Temp Pulse Resp B/P (MAP) Pulse Ox O2 Delivery O2 Flow Rate FiO2 02/06/17 11:46 94 Nasal Cannula 3.0 02/06/17 11:00 98.4 91 22 153/69 (97) 98.4 Physical Exam Physical Exam Neuro: schedule manager II-XII grossly intact b/l Psych: Mood stated as "good", affect is mood-congruent Eyes: sclera anicteric, no conjunctival injection General: Alert, Cooperative, No acute distress Heart: Regular rate, Normal S1, Normal S2, No murmurs, Other (CR<2sec) Lungs: Other (Diminished airflow, some rhonchi) Abdomen: Normal bowel sounds, Soft, No masses, Other (+BSx4, RUQ/RLQ tenderness to palpation) Extremities: No clubbing, No cyanosis Skin: No rashes, No significant lesion Labs LABS Laboratory Tests Test 02/05/17 16:11 02/05/17 20:56 02/06/17 04:25 02/06/17 08:02 Glucose (Fingerstick) 117 mg/dL (70-99) 170 mg/dL (70-99) 118 mg/dL (70-99) White Blood Count 10.0 x10^3/uL (4.0-11.0) Red Blood Count 3.57 x10^6/uL (4.30-5.70) Hemoglobin 9.3 g/dL (13.0-17.5) Hematocrit 30.2 % (39.0-53.0) Mean Corpuscular Volume 85 fL (79-100) Mean Corpuscular Hemoglobin 26 pg (25-35) Mean Corpuscular Hemoglobin Concent 31 g/dL (31-37) Red Cell Distribution Width 17.6 % (11.5-14.5) Platelet Count 312 x10^3/uL (140-400) Neutrophils (%) (Auto) 75 % (31-73) Lymphocytes (%) (Auto) 11 % (24-48) Monocytes (%) (Auto) 9 % (0-9) Eosinophils (%) (Auto) 4 % (0-3) Basophils (%) (Auto) 1 % (0-3) Neutrophils # (Auto) 7.4 x10^3uL (1.8-7.7) Lymphocytes # (Auto) 1.1 x10^3/uL (1.0-4.8) Monocytes # (Auto) 0.9 x10^3/uL (0.0-1.1) Eosinophils # (Auto) 0.4 x10^3/uL (0.0-0.7) Basophils # (Auto) 0.1 x10^3/uL (0.0-0.2) Segmented Neutrophils % 73 % (35-66) Lymphocytes % 7 % (24-48) Monocytes % 9 % (0-10) Eosinophils % 8 % (0-5) Basophils % 1 % (0-3) Myelocytes % 2 % (0-0) Platelet Estimate Adequate (ADEQUATE) Polychromasia Slight Anisocytosis Present Schistocytes Occ Sodium Level 143 mmol/L (136-145) Potassium Level 3.7 mmol/L (3.5-5.1) Chloride Level 105 mmol/L (98-107) Carbon Dioxide Level 36 mmol/L (21-32) Anion Gap 2 (6-14) Blood Urea Nitrogen 9 mg/dL (8-26) Creatinine 0.6 mg/dL (0.7-1.3) Estimated GFR (Cockcroft-Gault) 166.3 Glucose Level 125 mg/dL (70-99) Calcium Level 8.3 mg/dL (8.5-10.1) Review of Systems Review of Systems Admits to cough, wheezing, shortness of air, and 6/10 chest pain when coughing. Denies fever, chills, night sweats, nausea, or vomiting. Assessment and Plan Assessmemt and Plan Problems Medical Problems: (1) Acute respiratory failure Status: Acute (2) Fever Status: Acute (3) Pneumonia Status: Acute (4) Sepsis Status: Acute ASSESSMENT: Shortness of Breath CHF Diabetes-Type II Hypertension PLAN: Continue current meds. PT/OT Await cardiac input Await pulmonary input Possible discharge today if ok with subspecialists Problems: Comment Review of Relevant I have reviewed the following items jenny (where applicable) has been applied. Labs Laboratory Tests Test 02/04/17 14:27 02/04/17 16:53 02/04/17 20:37 02/05/17 04:15 Vancomycin Level Trough 11.6 mcg/mL (10.0-20.0) Vancomycin Last Dose Date 02/04/17 Vancomycin Last Dose Time 023 Glucose (Fingerstick) 240 mg/dL (70-99) 115 mg/dL (70-99) White Blood Count 8.7 x10^3/uL (4.0-11.0) Red Blood Count 3.64 x10^6/uL (4.30-5.70) Hemoglobin 9.6 g/dL (13.0-17.5) Hematocrit 30.5 % (39.0-53.0) Mean Corpuscular Volume 84 fL (79-100) Mean Corpuscular Hemoglobin 26 pg (25-35) Mean Corpuscular Hemoglobin Concent 31 g/dL (31-37) Red Cell Distribution Width 17.7 % (11.5-14.5) Platelet Count 311 x10^3/uL (140-400) Neutrophils (%) (Auto) 69 % (31-73) Lymphocytes (%) (Auto) 16 % (24-48) Monocytes (%) (Auto) 13 % (0-9) Eosinophils (%) (Auto) 2 % (0-3) Basophils (%) (Auto) 0 % (0-3) Neutrophils # (Auto) 6.0 x10^3uL (1.8-7.7) Lymphocytes # (Auto) 1.4 x10^3/uL (1.0-4.8) Monocytes # (Auto) 1.1 x10^3/uL (0.0-1.1) Eosinophils # (Auto) 0.2 x10^3/uL (0.0-0.7) Basophils # (Auto) 0.0 x10^3/uL (0.0-0.2) Sodium Level 144 mmol/L (136-145) Potassium Level 3.8 mmol/L (3.5-5.1) Chloride Level 106 mmol/L (98-107) Carbon Dioxide Level 35 mmol/L (21-32) Anion Gap 3 (6-14) Blood Urea Nitrogen 14 mg/dL (8-26) Creatinine 0.8 mg/dL (0.7-1.3) Estimated GFR (Cockcroft-Gault) 119.3 Glucose Level 136 mg/dL (70-99) Calcium Level 8.1 mg/dL (8.5-10.1) Test 02/05/17 07:38 02/05/17 11:15 02/05/17 16:11 02/05/17 20:56 Glucose (Fingerstick) 145 mg/dL (70-99) 135 mg/dL (70-99) 117 mg/dL (70-99) 170 mg/dL (70-99) Test 02/06/17 04:25 02/06/17 08:02 White Blood Count 10.0 x10^3/uL (4.0-11.0) Red Blood Count 3.57 x10^6/uL (4.30-5.70) Hemoglobin 9.3 g/dL (13.0-17.5) Hematocrit 30.2 % (39.0-53.0) Mean Corpuscular Volume 85 fL (79-100) Mean Corpuscular Hemoglobin 26 pg (25-35) Mean Corpuscular Hemoglobin Concent 31 g/dL (31-37) Red Cell Distribution Width 17.6 % (11.5-14.5) Platelet Count 312 x10^3/uL (140-400) Neutrophils (%) (Auto) 75 % (31-73) Lymphocytes (%) (Auto) 11 % (24-48) Monocytes (%) (Auto) 9 % (0-9) Eosinophils (%) (Auto) 4 % (0-3) Basophils (%) (Auto) 1 % (0-3) Neutrophils # (Auto) 7.4 x10^3uL (1.8-7.7) Lymphocytes # (Auto) 1.1 x10^3/uL (1.0-4.8) Monocytes # (Auto) 0.9 x10^3/uL (0.0-1.1) Eosinophils # (Auto) 0.4 x10^3/uL (0.0-0.7) Basophils # (Auto) 0.1 x10^3/uL (0.0-0.2) Segmented Neutrophils % 73 % (35-66) Lymphocytes % 7 % (24-48) Monocytes % 9 % (0-10) Eosinophils % 8 % (0-5) Basophils % 1 % (0-3) Myelocytes % 2 % (0-0) Platelet Estimate Adequate (ADEQUATE) Polychromasia Slight Anisocytosis Present Schistocytes Occ Sodium Level 143 mmol/L (136-145) Potassium Level 3.7 mmol/L (3.5-5.1) Chloride Level 105 mmol/L (98-107) Carbon Dioxide Level 36 mmol/L (21-32) Anion Gap 2 (6-14) Blood Urea Nitrogen 9 mg/dL (8-26) Creatinine 0.6 mg/dL (0.7-1.3) Estimated GFR (Cockcroft-Gault) 166.3 Glucose Level 125 mg/dL (70-99) Calcium Level 8.3 mg/dL (8.5-10.1) Glucose (Fingerstick) 118 mg/dL (70-99) Laboratory Tests Test 02/05/17 16:11 02/05/17 20:56 02/06/17 04:25 02/06/17 08:02 Glucose (Fingerstick) 117 mg/dL (70-99) 170 mg/dL (70-99) 118 mg/dL (70-99) White Blood Count 10.0 x10^3/uL (4.0-11.0) Red Blood Count 3.57 x10^6/uL (4.30-5.70) Hemoglobin 9.3 g/dL (13.0-17.5) Hematocrit 30.2 % (39.0-53.0) Mean Corpuscular Volume 85 fL (79-100) Mean Corpuscular Hemoglobin 26 pg (25-35) Mean Corpuscular Hemoglobin Concent 31 g/dL (31-37) Red Cell Distribution Width 17.6 % (11.5-14.5) Platelet Count 312 x10^3/uL (140-400) Neutrophils (%) (Auto) 75 % (31-73) Lymphocytes (%) (Auto) 11 % (24-48) Monocytes (%) (Auto) 9 % (0-9) Eosinophils (%) (Auto) 4 % (0-3) Basophils (%) (Auto) 1 % (0-3) Neutrophils # (Auto) 7.4 x10^3uL (1.8-7.7) Lymphocytes # (Auto) 1.1 x10^3/uL (1.0-4.8) Monocytes # (Auto) 0.9 x10^3/uL (0.0-1.1) Eosinophils # (Auto) 0.4 x10^3/uL (0.0-0.7) Basophils # (Auto) 0.1 x10^3/uL (0.0-0.2) Segmented Neutrophils % 73 % (35-66) Lymphocytes % 7 % (24-48) Monocytes % 9 % (0-10) Eosinophils % 8 % (0-5) Basophils % 1 % (0-3) Myelocytes % 2 % (0-0) Platelet Estimate Adequate (ADEQUATE) Polychromasia Slight Anisocytosis Present Schistocytes Occ Sodium Level 143 mmol/L (136-145) Potassium Level 3.7 mmol/L (3.5-5.1) Chloride Level 105 mmol/L (98-107) Carbon Dioxide Level 36 mmol/L (21-32) Anion Gap 2 (6-14) Blood Urea Nitrogen 9 mg/dL (8-26) Creatinine 0.6 mg/dL (0.7-1.3) Estimated GFR (Cockcroft-Gault) 166.3 Glucose Level 125 mg/dL (70-99) Calcium Level 8.3 mg/dL (8.5-10.1) Microbiology 02/01/17 Blood Culture - Preliminary, Resulted NO GROWTH AFTER 4 DAYS 02/02/17 - Final, Complete 02/02/17 - Final, Complete 02/02/17 - Final, Complete 02/02/17 - Final, Complete 02/02/17 Gram Stain Evaluation - Final, Complete 02/02/17 Sputum Culture - Final, Complete 02/02/17 Sputum Result 1 - Final, Complete Medications Current Medications Acetaminophen (Tylenol) 1,000 mg 1X ONCE PO Last administered on 02/01/17 13 :49; Start 02/01/17 at 12:45; Stop 02/01/17 at 13:19; Status DC Sodium Chloride 1,000 ml @ 200 mls/hr 1X ONCE IV Last administered on 13:49; Start 02/01/17 at 12:45; Stop 02/01/17 at 17:44; Status DC Piperacillin Sod/ Tazobactam Sod (Zosyn Per Pharmacy) 1 each PRN DAILY PRN MC SEE COMMENTS; Start 02/01/17 at 13:00; Stop 02/03/17 at 13:45; Status DC Vancomycin HCl (Vanco Per Pharmacy) 1 each PRN DAILY PRN MC SEE COMMENTS Last administered on 02/05/17 09:09; Start 02/01/17 at 13:00; Stop 02/06/17 at 07 :44; Status DC Levofloxacin/ Dextrose (Levaquin Per Pharmacy) 1 each PRN DAILY PRN MC SEE COMMENTS; Start 02/01/17 at 13:00; Stop 02/03/17 at 13:46; Status DC Albuterol/ Ipratropium (Duoneb) 3 ml 1X ONCE NEB Last administered on 14:30; Start 02/01/17 at 13:15; Stop 02/01/17 at 13:20; Status DC Albuterol/ Ipratropium (Duoneb) 3 ml RTQID NEB Last administered on 02/02/17 11:18; Start 02/01/17 at 16:00; Stop 02/02/17 at 15:59; Status DC Albuterol Sulfate (Ventolin Neb Soln) 10 mg 1X ONCE CONT NEB Last administered on 02/01/17 14:20; Start 02/01/17 at 13:15; Stop 02/01/17 at 13 :19; Status DC Levofloxacin/ Dextrose 100 ml @ 100 mls/hr 1X ONCE IV Last administered on 13:49; Start 02/01/17 at 13:30; Stop 02/01/17 at 14:29; Status DC Piperacillin Sod/ Tazobactam Sod (Zosyn) 4.5 gm 1X ONCE IVP Last administered on 02/01/17 14:43; Start 02/01/17 at 13:30; Stop 02/01/17 at 13:31; Status DC Vancomycin HCl 2 gm/Dextrose 500 ml @ 250 mls/hr 1X ONCE IV Last administered on 02/01/17 14:43; Start 02/01/17 at 14:00; Stop 02/01/17 at 15 :59; Status DC Levofloxacin/ Dextrose 150 ml @ 100 mls/hr Q24H IV Last administered on 13:54; Start 02/02/17 at 15:00; Stop 02/05/17 at 18:05; Status DC Piperacillin Sod/ Tazobactam Sod (Zosyn) 4.5 gm Q6HRS IVP Last administered on 02/05/17 17:46; Start 02/01/17 at 19:00; Stop 02/05/17 at 18:05; Status DC Aspirin (Ecotrin) 81 mg DAILYWBKFT PO Last administered on 02/06/17 08:56; Start 02/01/17 at 16:00 Vancomycin HCl 2 gm/Dextrose 500 ml @ 250 mls/hr Q8H IV ; Start 02/01/17 at 23 :00; Stop 02/01/17 at 23:00; Status DC Vancomycin HCl 1 each 1X ONCE MC Last administered on 02/03/17 02:30; Start 02/03/17 at 02:30; Stop 02/03/17 at 02:31; Status DC Vancomycin HCl 2 gm/Dextrose 500 ml @ 250 mls/hr Q12H IV Last administered on 02/03/17 03:19; Start 02/02/17 at 03:00; Stop 02/03/17 at 08:24; Status DC Pneumococcal Polyvalent Vaccine (Pneumovax 23) 0.5 ml ONCE ONCE VAX IM Last administered on 02/02/17 14:24; Start 02/02/17 at 09:00; Stop 02/02/17 at 09 :01; Status DC Morphine Sulfate 2 mg PRN Q2HR PRN IV PAIN Last administered on 02/02/17 16: 48; Start 02/02/17 at 09:00 Ketorolac Tromethamine (Toradol) 30 mg PRN Q6HRS PRN IV PAIN Last administered on 02/04/17 20:45; Start 02/02/17 at 09:00; Stop 02/07/17 at 08:59 Aspirin (Ecotrin) 81 mg DAILYWBKFT PO ; Start 02/03/17 at 08:00; Status Cancel Atorvastatin Calcium (Lipitor) 10 mg QHS PO Last administered on 02/05/17 21: 02; Start 02/02/17 at 21:00 Lisinopril (Prinivil) 10 mg DAILY PO Last administered on 02/06/17 08:56; Start 02/02/17 at 12:00 Acetaminophen (Tylenol) 650 mg PRN Q12HR PRN PO PAIN; Start 02/02/17 at 13:45 Atorvastatin Calcium (Lipitor) 10 mg HS PO ; Start 02/02/17 at 21:00; Status UNV Diclofenac Sodium (Voltaren) 1 traci BID TP Last administered on 02/06/17 08:57 ; Start 02/02/17 at 21:00 Glipizide (Glucotrol) 5 mg DAILYWBKFT PO Last administered on 02/06/17 08:56 ; Start 02/03/17 at 08:00 Ibuprofen (Motrin) 400 mg PRN Q12HR PRN PO INFLAMMATION; Start 02/02/17 at 13: 45; Status Cancel Paroxetine HCl (Paxil) 20 mg HS PO Last administered on 02/05/17 21:02; Start 02/02/17 at 21:00 Metformin HCl (Glucophage) 1,000 mg DAILYBFRSUP PO Last administered on 17:48; Start 02/02/17 at 17:00; Stop 02/02/17 at 17:55; Status DC Lactobacillus Rhamnosus (Culturelle) 1 cap BID PO Last administered on 08:56; Start 02/02/17 at 21:00 Metformin HCl (Glucophage Xr) 1,000 mg DAILYBFRSUP PO Last administered on 17:46; Start 02/02/17 at 18:00 Albuterol/ Ipratropium (Duoneb) 3 ml RTQID NEB Last administered on 02/06/17 11:46; Start 02/03/17 at 08:00 Vancomycin HCl 1 each 1X ONCE MC ; Start 02/04/17 at 14:30; Stop 02/04/17 at 14:31; Status DC Vancomycin HCl 2 gm/Sodium Chloride 500 ml @ 250 mls/hr Q12H IV ; Start at 08:24; Stop 02/03/17 at 08:25; Status DC Vancomycin HCl 2 gm/Sodium Chloride 500 ml @ 250 mls/hr Q12H IV Last administered on 02/04/17 02:32; Start 02/03/17 at 15:00; Stop 02/04/17 at 13 :22; Status DC Guaifenesin (Mucinex) 1,200 mg BID PO Last administered on 02/06/17 08:55; Start 02/03/17 at 15:30 Polyethylene Glycol (miraLAX PACKET) 17 gm DAILY PO Last administered on 08:56; Start 02/03/17 at 15:30 Guaifenesin (Robitussin Dm) 10 ml PRN Q4HRS PRN PO COUGH Last administered on 02/04/17 20:45; Start 02/03/17 at 20:00 Vancomycin HCl 2 gm/Dextrose/ Sodium Chloride 500 ml @ 250 mls/hr Q12H IV ; Start 02/04/17 at 15:00; Status Cancel Vancomycin HCl 1.5 gm/Dextrose/ Sodium Chloride 500 ml @ 250 mls/hr Q8H IV Last administered on 02/05/17 15:41; Start 02/04/17 at 15:00; Stop 02/05/17 at 18:05; Status DC Amoxicillin/ Clavulanate Potassium (Augmentin 875/ 125mg) 1 tab BID PO Last administered on 02/06/17 08:56; Start 02/05/17 at 21:00 Hydralazine HCl (Apresoline Inj) 10 mg PRN Q4HRS PRN IVP ELEVATED BP, SEE COMMENTS; Start 02/05/17 at 23:45 Active Scripts Active Reported Voltaren (Diclofenac Sodium) 100 Gm Gel..gram. 1 Gm TP BID Capsaicin 42.5 Gm Cream..g. 42.5 Gm TP Lisinopril 40 Mg Tablet 1 Tab PO HS Tylenol (Acetaminophen) 325 Mg Tablet 2 Tab PO PRN Q12HR PRN Chlorthalidone 25 Mg Tablet 2 Tab PO DAILY Paxil (Paroxetine Hcl) 20 Mg Tablet 1 Tab PO HS Metformin Hcl Er (Metformin Hcl) 1,000 Mg Tab.er.24 1,000 Mg PO DAILYBFRSUP Atorvastatin Calcium 10 Mg Tablet 10 Mg PO HS Glipizide 5 Mg Tablet 1 Tab PO DAILY Ibuprofen 400 Mg Tablet 400 Mg PO PRN Q12HR PRN Vitals/I & O Vital Sign - Last 24 Hours 02/05/17 02/05/17 02/05/17 02/05/17 14:57 16:32 19:30 20:00 Temp 98.2 98.2 98.2 98.2 Pulse 92 91 Resp 20 18 B/P (MAP) 156/80 (105) 161/67 (98) Pulse Ox 95 95 93 O2 Delivery Nasal Cannula Nasal Cannula Nasal Cannula Nasal Cannula O2 Flow Rate 4.0 3.0 3.0 4.0 02/05/17 02/05/17 02/06/17 02/06/17 21:17 23:35 03:35 07:00 Temp 98.6 98.3 98.2 98.6 98.3 98.2 Pulse 98 98 88 Resp 20 18 18 B/P (MAP) 183/94 (123) 150/75 (100) 168/79 (108) Pulse Ox 95 90 91 99 O2 Delivery Nasal Cannula Nasal Cannula Nasal Cannula O2 Flow Rate 4.0 3.0 4.0 02/06/17 02/06/17 02/06/17 02/06/17 08:10 08:45 08:56 11:00 Temp 98.4 98.4 Pulse 88 91 Resp 22 B/P (MAP) 168/79 153/69 (97) Pulse Ox 92 91 O2 Delivery Venturi Mask Nasal Cannula O2 Flow Rate 3.0 3.0 02/06/17 11:46 Pulse Ox 94 O2 Delivery Nasal Cannula O2 Flow Rate 3.0 Intake and Output 02/05/17 02/05/17 02/06/17 14:59 22:59 06:59 Intake Total 520 ml 1120 ml 200 ml Output Total 1600 ml 1450 ml Balance 520 ml -480 ml -1250 ml BRIDGETT WAGNER III DO Feb 06, 2017 12:17
[2017-02-06] MEDS: guaiFENesin DM 200MG/20MG 10 ML SYRUP PO PRN (12:22)
--- NOTE | 2017-02-12 10:28 | DS ---
DATE OF DISCHARGE: 02/06/2017 ADMISSION DIAGNOSES: Left lower lobe pneumonia with respiratory failure. DISCHARGE DIAGNOSIS: Resolving pneumonia. HOSPITAL COURSE: The patient is a pleasant 61-year-old male who presented with respiratory failure with left lower lobe pneumonia. He was admitted. We consulted Pulmonary. We did IV antibiotics, breathing treatments and oxygen, physical therapy, occupational therapy, did well. We discharged to home. DISPOSITION: Home. ACTIVITY: As tolerated. DIET: Low sodium. MEDICATIONS: Please see the MRAD. TOTAL TIME: 34 minutes. BRIDGETT WAGNER DO DR: SALLY/chuckie JOB#: [id number] / [id number]
== END 2017-02-06 13:37 | disposition home or self-care (01) | DRG 871 ==
LOC: ER 12:22 → EEVIPCON 12:22 → 2 SOUTH 13:15
PROVIDERS: ADMIT Internal Medicine; ATTEND Internal Medicine
PROC: 5A09357 Assistance with Respiratory Ventilation, Less than 24 Consecutive Hours, Continuous Positive Airway Pressure (ICD-10-PCS; principal; 2017-02-01)
PROC: 5A09357 Assistance with Respiratory Ventilation, Less than 24 Consecutive Hours, Continuous Positive Airway Pressure (ICD-10-PCS; 2017-02-01)
PROC: 5A09357 Assistance with Respiratory Ventilation, Less than 24 Consecutive Hours, Continuous Positive Airway Pressure (ICD-10-PCS; 2017-02-02)
PROC: 5A09357 Assistance with Respiratory Ventilation, Less than 24 Consecutive Hours, Continuous Positive Airway Pressure (ICD-10-PCS; 2017-02-02)
DX: A41.9 Sepsis, unspecified organism (principal); J15.6 Pneumonia due to other Gram-negative bacteria; J96.21 Acute and chronic respiratory failure with hypoxia; E43 Unspecified severe protein-calorie malnutrition; I11.0 Hypertensive heart disease with heart failure; I50.9 Heart failure, unspecified; J96.22 Acute and chronic respiratory failure with hypercapnia; Z68.42 Body mass index [BMI] 45.0-49.9, adult; E66.2 Morbid (severe) obesity with alveolar hypoventilation; J44.0 Chronic obstructive pulmonary disease with (acute) lower respiratory infection; G47.33 Obstructive sleep apnea (adult) (pediatric); E78.5 Hyperlipidemia, unspecified; E11.9 Type 2 diabetes mellitus without complications; F41.9 Anxiety disorder, unspecified; R79.89 Other specified abnormal findings of blood chemistry; M19.90 Unspecified osteoarthritis, unspecified site; E66.9 Obesity, unspecified; Z88.8 Allergy status to other drugs, medicaments and biological substances; Z82.49 Family history of ischemic heart disease and other diseases of the circulatory system; Z87.891 Personal history of nicotine dependence; Z23 Encounter for immunization
CPT/HCPCS: 36415; 71010; 71250; 80048; 80053; 80061; 80202; 82805; 82962; 83036; 83605; 83880; 84484; 85007; 85025; 87040; 87070; 87205; 90732; 93005; 93306; 94250; 94640; 94660; 94760; J1885; J1956; J2270; J2543; J3370; J7030; J7040; J7613; J7620; 97116; 97530; 97535; 99291-25